=== PATIENT | female | born 1935 | race Caucasian/White ===

== ENCOUNTER 2017-01-10 19:41 | Inpatient (IN) | payer OTHER, MEDICARE ==
--- NOTE | 2017-01-10 19:56 | CPEKG ---
Heart Rate: 83 RR Interval: 723 P-R Interval: 131 QRSD Interval: 114 QT Interval: 376 QTC Interval: 442 P [place]: 0 QRS [place]: 9 T Wave [place]: 186 EKG Severity - ABNORMAL ECG - EKG Impression: SINUS RHYTHM EKG Impression: INCOMPLETE LEFT BUNDLE BRANCH BLOCK EKG Impression: PROBABLE LVH WITH SECONDARY REPOL ABNRM Electronically Signed By: Arun Arguelles 10-Jan-2017 22:47:51
[2017-01-10] MEDS ORDERED: NS 500 ML IV ONE (20:28)
[2017-01-10] MEDS ORDERED: CALCIUM CARBONATE 500 MG CHEWABLE TAB PO ONE ×2 (20:40→20:42)
[2017-01-10] MEDS ORDERED: FAMOTIDINE 20 MG/NACL/50 ML BAG IV ONE (20:40)
[2017-01-10 20:41] LABS: ALANINE AMINOTRANSFERASE 25 IU/L (9-52); ALBUMIN 3.5 g/dL (3.5-5.0); ALKALINE PHOSPHATASE 42 IU/L (38-126); ANION GAP 11 mEq/L (8-16); ASPARTATE AMINOTRANSFERASE 24 IU/L (14-46); BILIRUBIN,TOTAL 0.4 mg/dL (0.1-1.4); BILIRUBIN-CONJUGATED 0.3 mg/dL (0.0-0.5); BILIRUBIN-UNCONJUGATED 0.1 mg/dL (0.0-1.1); CALCIUM 10.7 mg/dL (8.5-10.4); CARBON DIOXIDE 24 mEq/l (22-31); CHLORIDE 102 mEq/L (97-110); CREATININE 1.6 mg/dL (0.6-1.0); GLOMERULAR FILTRATION RATE 31; GLUCOSE 108 mg/dL (70-100); SODIUM 137 mEq/L (134-144); TOTAL PROTEIN 6.7 g/dL (6.3-8.2)
[2017-01-10] MEDS ORDERED: FAMOTIDINE 20 MG/NACL 50 ML IV ONE (20:42)
[2017-01-10 20:43] LABS: % IMMATURE GRANULYOCYTES 0.6 % (0.0-1.1); ABSOLUTE IMMATURE GRANULOCYTES 0.08 10^3/uL (0.00-0.10); ADD DIFF? NO; ADD MORPH? NO; ADD SCAN? NO; ATYPICAL LYMPHOCYTE FLAG 0 (0-99); FRAGMENT RBC FLAG 0 (0-99); HEMATOCRIT 22.7 % (38.0-47.0); HEMOGLOBIN 7.1 g/dL (12.6-16.3); LEFT SHIFT FLG 0 (0-99); LIPEMIA HEMOLYSIS FLAG 80 (0-99); MEAN CELL HEMOGLOBIN CONCENTR. 31.3 g/dL (32.4-36.7); MEAN CELL VOLUME 95.8 fL (81.5-99.8); MEAN PLATELET VOLUME 11.4 fL (8.7-11.7); PLATELET CLUMPS FLAG 60 (0-99); PLATELET COUNT 238 10^3/uL (150-400); RED BLOOD CELL COUNT 2.37 10^6/uL (4.18-5.33); RED CELL DISTRIBUTION WIDTH 15.6 % (11.5-15.2)
[2017-01-10 20:44] LABS: INR 1.11 (0.83-1.16); PROTIME(PATIENT) 14.5 SEC (12.0-15.0)
[2017-01-10 20:53] LABS: CREATINE KINASE-MB FRACTION 1.09 ng/mL (0.00-3.19)
[2017-01-10] MEDS ORDERED: ONDANSETRON 4 MG/2 ML VIAL ONE (21:34)
[2017-01-10] MEDS ORDERED: ONDANSETRON 4 MG/2 ML VIAL IVP ONE ×2 (21:35→21:36)
--- NOTE | 2017-01-10 21:38 | EDPHY ---
H & P Time Seen by Provider: 01/10/17 20:12 HPI/ROS: HPI Increased fatigue. 81-year-old female by private vehicle with her . This patient has a complicated past medical history. Her and her were in [place] back in October. She has a history of a calcified aortic valve. This was diagnosed by echocardiogram by her primary care physician Dr. Mullins. She declined to have a valve replacement. While in [place] she developed shortness of breath which worsened acutely. She was taken to the hospital and had a aortic balloon pump placed followed by a bypass procedure and placement of a pig valve. During this procedure she had a small stroke. She had some residual right lower extremity weakness. Her who is providing most of the history states that this has gotten progressively better. She has graduated from using a walker to using a cane. She also has a history of anemia and has been treated with iron supplements by her primary care physician. Her reports however over the last few days she has again become progressively more fatigued and weak and much less active. She was seen at the [facility] which is affiliated with [facility]. We have sent for records request. ROS: Constitutional: No fever, no chills. As above. Eyes: No discharge. No changes in vision. ENT: No sore throat. No nasal congestion or rhinorrhea. Respiratory: No cough. No shortness of breath. Cardiac: No chest pain, no palpitations. Gastrointestinal: No abdominal pain, no vomiting, no diarrhea. Genitourinary: No hematuria. No dysuria or increased frequency with urination. Musculoskeletal: No back pain. No neck pain. No myalgias or arthralgias. Skin: No rashes. Neurological: No headache. No new focal weakness or altered sensation. Past medical history: As above. Asthma, hypertension, acid reflux. As above. On clopidogrel. Social history: Nonsmoker. No alcohol. Here with her . Physical Exam: General Appearance: Alert, she is not in distress. This patient is responding to questions appropriately and in full sentences. This patient appears well- hydrated. She is moderately obese. Eyes: Pupils equal and round no pallor or injection. No lid edema, erythema or injection. ENT, Mouth: Mucous membranes are moist. The pharyngeal tissues are unremarkable. No edema or swelling. No asymmetry suggestive of abscess. No erythema or exudates. Respiratory: There are no retractions, lungs are clear to auscultation anteriorly with good air movement bilaterally. Cardiovascular: Regular rate and rhythm. Murmur noted. Gastrointestinal: Obese habitus. Abdomen is soft and nontender, no masses, bowel sounds normal. No focal tenderness at McBurney's point. No Castillo sign. Rectal exam: Normal rectal tone. Dark stool. No gross blood. Neurological: Motor sensory function is grossly intact. Cranial nerves are normal. Skin: Warm and dry, no rashes. Musculoskeletal: Neck is supple and nontender. Extremities are symmetrical. All joints range without pain or impingement. Psychiatric: No agitation. No depression. Database: EKG: EKG time is 7:51 p.m.; EKG shows a sinus rhythm with an incomplete left bundle branch block. ST depressions noted in 2 3 and AVF as well as the lateral precordial leads. J-point elevation in V1 through V3. I do not have a EKG for comparison. The discordance appears appropriate. Interpreted by me. Imaging: Chest x-ray AP portable; the cardiac mediastinal silhouette is unremarkable. No evidence of infiltrate or pneumothorax. No acute cardiopulmonary disease process noted. Interpreted by me. Procedures: Emergency department course: IV was placed. Her vital signs were reviewed. Vital signs are normal. She was started on IV normal saline with 500 cc to be given over the next hour. She was given 4 mg of IV Zofran, Tums and IV Pepcid initially for nausea. 9:30 p.m., results of her diagnostic workup discussed with her and her . Plan for admission discussed. We are working on obtaining her medical records from [place]. 9:45 p.m., patient started on IV Protonix for likely upper gastrointestinal bleeding source. Hemoccult positive. She is on clopidogrel. 9:50 p.m., spoke with hospitalist, Dr. Urbina. Case discussed in detail with him. She accepts this patient for admission. Gastroenterology consultation deferred to hospitalist service. 10:44 p.m., urinalysis indicates urinary tract infection. Patient given 1 g of IV Rocephin in the emergency department prior to admission and transfer to the floor. She was admitted in stable condition. Differential Diagnosis: The differential diagnosis on this patient includes but is not limited to failure to thrive, upper versus lower gastrointestinal bleeding, congestive heart failure. Acute myocardial infarction This represents a partial list of diagnoses considered. These considerations are based on history, physical exam , past history, reassessment and diagnostic testing. Smoking Status: Never smoked Constitutional: Initial Vital Signs Temperature (C) 36.6 C 01/10/17 19:55 Heart Rate 98 01/10/17 19:55 Respiratory Rate 18 01/10/17 19:55 Blood Pressure 125/65 H 01/10/17 19:55 O2 Sat (%) 96 01/10/17 19:55 O2 Delivery Mode Room Air O2 (L/minute) 2 Allergies/Adverse Reactions: No Known Allergies Allergy (Unverified 01/10/17 19:55) Home Medications: Medication Instructions Recorded Acetaminophen [Tylenol 325mg (*)] 650 mg PO Q6 PRN 01/10/17 Albuterol Hfa Anes Only [Proair 2 puffs IH QID PRN 01/10/17 Hfa Icu (*)] Aspirin EC [Aspirin EC 81 mg (*)] 81 mg PO DAILY 01/10/17 Atorvastatin Calcium [Lipitor 40 40 mg PO HS 01/10/17 mg (*)] Clopidogrel Bisulfate [Plavix (*)] 75 mg PO DAILY 01/10/17 Docusate Sodium [Colace 100 MG (*)] 100 mg PO BID PRN 01/10/17 Herbals/Supplements -Info Only 1 ea PO DAILY 01/10/17 LORazepam [Ativan (*)] 1 mg PO HS PRN 01/10/17 Olmesartan Medoxomil [Benicar 20 20 mg PO DAILY 01/10/17 mg (*)] Polyethylene Glycol 3350 [Miralax 17 gm PO DAILY 01/10/17 17 gm (*)] Sennosides [Senna Lax] 17.2 mg PO HS PRN 01/10/17 Medical Decision Making - Data Points Laboratory Results: Laboratory Results 01/10/17 20:00 01/10/17 20:00 01/10/17 22:00 Patient ABO/Rh O POSITIVE Antibody Screen NEGATIVE Crossmatch IS Only See Detail Medications Given: Albuterol (Ventolin Hfa Inhaler) 1 - 2 puffs IH Q4HRS PRN PRN Reason: Short of Breath/Dyspnea Stop: 07/09/17 23:36 Last Admin: 01/13/17 02:29 Dose: 2 puffs Atorvastatin Calcium (Lipitor) 40 mg PO HS LILI Stop: 07/10/17 20:59 Last Admin: 01/12/17 20:10 Dose: 40 mg Clopidogrel Bisulfate (Plavix) 75 mg PO DAILY LILI Stop: 07/10/17 08:59 Last Admin: 01/12/17 13:19 Dose: 75 mg Lorazepam (Ativan) 1 mg PO HS PRN PRN Reason: Sleep/Insomnia Stop: 07/10/17 18:31 Last Admin: 01/12/17 20:15 Dose: 1 mg Pantoprazole Sodium (Protonix) 40 mg PO BID LILI Stop: 07/11/17 13:29 Last Admin: 01/12/17 20:10 Dose: 40 mg Discontinued Medications Calcium Carbonate (Tums) 500 mg PO EDNOW ONE Stop: 01/10/17 20:43 Last Admin: 01/10/17 20:44 Dose: 500 mg Sodium Chloride (Ns) 500 mls @ 1,000 mls/hr IV EDNOW ONE PRN Reason: Protocol Stop: 01/10/17 20:57 Last Admin: 01/10/17 20:38 Dose: 500 mls Famotidine/Sodium Chloride (Pepcid 20 Mg (Premix)) 50 mls @ 200 mls/hr IV EDNOW ONE Stop: 01/10/17 20:56 Last Admin: 01/10/17 20:44 Dose: 50 mls Pantoprazole Sodium 80 mg/ (Sodium Chloride) 100 mls @ 10 mls/hr IV Q10H ONE Stop: 01/11/17 07:43 Last Admin: 01/10/17 22:18 Dose: 100 mls Ceftriaxone Sodium/Dextrose (Rocephin 1 Gm (Premix)) 50 mls @ 100 mls/hr IV EDNOW ONE PRN Reason: Protocol Stop: 01/10/17 23:13 Last Admin: 01/10/17 23:07 Dose: 50 mls Ferric Sodium Gluconate Complex 125 mg/ Sodium Chloride 110 mls @ 110 mls/hr IV ONCE ONE Stop: 01/11/17 14:45 Last Admin: 01/11/17 14:16 Dose: 110 mls Lactated Ringer's (Lr) 1,000 mls @ 0 mls/hr IV ONCE ONE PRN Reason: As Directed Stop: 01/11/17 16:01 Last Admin: 01/11/17 18:04 Dose: Not Given Ondansetron HCl (Zofran) 4 mg IVP EDNOW ONE Stop: 01/10/17 21:36 Last Admin: 01/10/17 21:36 Dose: 4 mg Ondansetron HCl (Zofran) 4 mg IVP EDNOW ONE Stop: 01/10/17 21:37 Last Admin: 01/10/17 21:48 Dose: Not Given Pantoprazole Sodium (Protonix) 80 mg IVP EDNOW ONE Stop: 01/10/17 21:45 Last Admin: 01/10/17 22:04 Dose: 80 mg Pantoprazole Sodium (Protonix) 40 mg IVP BID LILI Stop: 07/10/17 08:59 Last Admin: 01/12/17 14:29 Dose: Not Given Departure - Departure Disposition: [facility] Acute Clinical Impression: Anemia, Failure to thrive, Dehydration, Renal insufficiency, Gastrointestinal bleeding, UTI (urinary tract infection) Condition: Fair
[2017-01-10] MEDS ORDERED: PANTOPRAZOLE SODIUM 40 MG VIAL IVP ONE (21:44)
[2017-01-10] MEDS ORDERED: PANTOPRAZOLE SODIUM 80 MG in NS 100 ML IV ONE (21:44)
[2017-01-10] MEDS ORDERED: ACETAMINOPHEN 325 MG TAB PO PRN (22:15)
[2017-01-10] MEDS ORDERED: ONDANSETRON DISINTEGRATING 4 MG TAB PO PRN (22:15)
[2017-01-10] MEDS ORDERED: ONDANSETRON 4 MG/2 ML VIAL IVP PRN (22:15)
[2017-01-10 22:16] LABS: COLOR YELLOW; LEUKOCYTE ESTERASE,URINE 2+ (NEGATIVE); NITRITE,URINE NEGATIVE (NEGATIVE)
[2017-01-10 22:27] LABS: BACTERIA TRACE /hpf (NONE SEEN); MUCUS TRACE /lpf (NONE-1+); YEAST PRESENT /hpf (NONE SEEN)
--- NOTE | 2017-01-10 23:05 | PDGENHP ---
History and Physical - Chief Complaint Fatigue - History of Present Illness 81 yo F w/ CAD s/p DAVID in October, s/p TAVR, and CKD presents with fatigue. Patient had a complicated hospital stay in [place] in October of this year while she was traveling. Per patient and daughter, the patient had acute shortness of breath at a grocery story and was taken to a nearby hospital. She was then transferred to [facility] where she had a cardiac stent placed and underwent a TAVR procedure, likely in the setting of heart failure symptoms. She recovered well from that and returned to [place] on a medical regimen of DAPT and statin. She has reportedly been doing ok since but over the last few days has developed severe fatigue and some mild confusion. Today her fatigue was accompanied by ROSAS and became so severe she had a hard time ambulating. At that point they came to the ED for evaluation. History Information - Allergies/Home Medication List Allergies/Adverse Reactions: No Known Allergies Allergy (Unverified 01/10/17 19:55) Home Medications: Acetaminophen [Tylenol 325mg (*)] 650 mg PO Q6 PRN 01/10/17 [Last Taken Unknown] Albuterol Hfa Anes Only [Proair Hfa Icu (*)] 2 puffs IH QID PRN 01/10/17 [Last Taken Unknown] Aspirin EC [Aspirin EC 81 mg (*)] 81 mg PO DAILY 01/10/17 [Last Taken 01/10/17] Atorvastatin Calcium [Lipitor 40 mg (*)] 40 mg PO HS 01/10/17 [Last Taken ] Clopidogrel Bisulfate [Plavix (*)] 75 mg PO DAILY 01/10/17 [Last Taken 01/10/17] Docusate Sodium [Colace 100 MG (*)] 100 mg PO BID PRN 01/10/17 [Last Taken Unknown] Herbals/Supplements -Info Only 1 ea PO DAILY 01/10/17 [Last Taken 01/10/17] LORazepam [Ativan (*)] 1 mg PO HS PRN 01/10/17 [Last Taken Unknown] Olmesartan Medoxomil [Benicar 20 mg (*)] 20 mg PO DAILY 01/10/17 [Last Taken ] Polyethylene Glycol 3350 [Miralax 17 gm (*)] 17 gm PO DAILY 01/10/17 [Last Taken Unknown] Sennosides [Senna Lax] 17.2 mg PO HS PRN 01/10/17 [Last Taken Unknown] I have personally reviewed and updated: family history, medical history - Past Medical History asthma, coronary artery disease, CVA Additional medical history: CKD - Surgical History Additional surgical history: TAVR - Family History Positive for: CAD, stroke - Social History Smoking Status: Never smoked Review of Systems Review of Systems: ROS: 10pt was reviewed & negative except for what was stated in HPI & below Physical Exam Physical Exam: Temp Pulse Resp BP Pulse Ox 37.1 C 89 20 133/58 H 98 01/10/17 22:30 01/10/17 22:30 01/10/17 22:30 01/10/17 22:30 01/10/17 22:30 Constitutional: no apparent distress, not in pain Eyes: PERRL, pale conjunctiva Ears, Nose, Mouth, Throat: moist mucous membranes, no oral mucosal ulcers Cardiovascular: regular rate and rhythym, systolic murmur (RUSB), diastolic murmur, No edema Respiratory: no respiratory distress, clear to auscultation Gastrointestinal: normoactive bowel sounds, soft, non-tender abdomen Skin: warm, normal color Neurologic: sensation intact bilaterally, other (A&Ox2 for name and place; close on date (late December)) Psychiatric: interacting appropriately, not anxious Lab Data & Imaging Review 01/10/17 20:00 01/10/17 20:00 WBC 12.72 10^3/uL (3.80-9.50) H 01/10/17 20:00 RBC 2.37 10^6/uL (4.18-5.33) L 01/10/17 20:00 Hgb 7.1 g/dL (12.6-16.3) L 01/10/17 20:00 Hct 22.7 % (38.0-47.0) L 01/10/17 20:00 MCV 95.8 fL (81.5-99.8) 01/10/17 20:00 MCH 30.0 pg (27.9-34.1) 01/10/17 20:00 MCHC 31.3 g/dL (32.4-36.7) L 01/10/17 20:00 RDW 15.6 % (11.5-15.2) H 01/10/17 20:00 Plt Count 238 10^3/uL (150-400) 01/10/17 20:00 MPV 11.4 fL (8.7-11.7) 01/10/17 20:00 Neut % (Auto) 84.2 % (39.3-74.2) H 01/10/17 20:00 Lymph % (Auto) 9.4 % (15.0-45.0) L 01/10/17 20:00 [place] % (Auto) 5.3 % (4.5-13.0) 01/10/17 20:00 Eos % (Auto) 0.2 % (0.6-7.6) L 01/10/17 20:00 Baso % (Auto) 0.3 % (0.3-1.7) 01/10/17 20:00 Nucleat RBC Rel Count 0.0 % (0.0-0.2) 01/10/17 20:00 Absolute Neuts (auto) 10.71 10^3/uL (1.70-6.50) H 01/10/17 20:00 Absolute Lymphs (auto) 1.19 10^3/uL (1.00-3.00) 01/10/17 20:00 Absolute Monos (auto) 0.68 10^3/uL (0.30-0.80) 01/10/17 20:00 Absolute Eos (auto) 0.02 10^3/uL (0.03-0.40) L 01/10/17 20:00 Absolute Basos (auto) 0.04 10^3/uL (0.02-0.10) 01/10/17 20:00 Absolute Nucleated RBC 0.00 10^3/uL (0-0.01) 01/10/17 20:00 Immature Gran % 0.6 % (0.0-1.1) 01/10/17 20:00 Immature Gran # 0.08 10^3/uL (0.00-0.10) 01/10/17 20:00 PT 14.5 SEC (12.0-15.0) 01/10/17 20:00 INR 1.11 (0.83-1.16) 01/10/17 20:00 APTT 20.0 SEC (23.0-38.0) L 01/10/17 20:00 D-Dimer 0.85 ug/mLFEU (0.00-0.50) H 01/10/17 20:00 Sodium 137 mEq/L (134-144) 01/10/17 20:00 Potassium 5.0 mEq/L (3.5-5.2) 01/10/17 20:00 Chloride 102 mEq/L (97-110) 01/10/17 20:00 Carbon Dioxide 24 mEq/l (22-31) 01/10/17 20:00 Anion Gap 11 mEq/L (8-16) 01/10/17 20:00 BUN 72 mg/dL (7-23) H 01/10/17 20:00 Creatinine 1.6 mg/dL (0.6-1.0) H 01/10/17 20:00 Estimated GFR 31 01/10/17 20:00 Glucose 108 mg/dL (70-100) H 01/10/17 20:00 Calcium 10.7 mg/dL (8.5-10.4) H 01/10/17 20:00 Phosphorus 3.5 mg/dL (2.5-4.5) 01/10/17 20:00 Total Bilirubin 0.4 mg/dL (0.1-1.4) 01/10/17 20:00 Conjugated Bilirubin 0.3 mg/dL (0.0-0.5) 01/10/17 20:00 Unconjugated Bilirubin 0.1 mg/dL (0.0-1.1) 01/10/17 20:00 AST 24 IU/L (14-46) 01/10/17 20:00 ALT 25 IU/L (9-52) 01/10/17 20:00 Alkaline Phosphatase 42 IU/L (38-126) 01/10/17 20:00 Creatine Kinase < 20 IU/L (0-156) 01/10/17 20:00 CK-MB (CK-2) Fraction 1.09 ng/mL (0.00-3.19) 01/10/17 20:00 Troponin I 0.020 ng/mL (0.000-0.034) 01/10/17 20:00 NT-Pro-B Natriuret Pep 1370 pg/mL (0-450) H 01/10/17 20:00 Total Protein 6.7 g/dL (6.3-8.2) 01/10/17 20:00 Albumin 3.5 g/dL (3.5-5.0) 01/10/17 20:00 Lipase 444 IU/L (23-300) H 01/10/17 20:00 Urine Color YELLOW 01/10/17 22:06 Urine Appearance MODERATELY TURBID 01/10/17 22:06 Urine pH 5.0 (5.0-7.5) 01/10/17 22:06 Ur Specific [place] 1.023 (1.002-1.030) 01/10/17 22:06 Urine Protein NEGATIVE (NEGATIVE) 01/10/17 22:06 Urine Ketones NEGATIVE (NEGATIVE) 01/10/17 22:06 Urine Blood 3+ (NEGATIVE) H 01/10/17 22:06 Urine Nitrate NEGATIVE (NEGATIVE) 01/10/17 22:06 Urine Bilirubin NEGATIVE (NEGATIVE) 01/10/17 22:06 Urine Urobilinogen NEGATIVE EU (0.2-1.0) 01/10/17 22:06 Ur Leukocyte Esterase 2+ (NEGATIVE) H 01/10/17 22:06 Urine RBC 5-10 /hpf (0-3) H 01/10/17 22:06 Urine WBC 5-10 /hpf (0-3) H 01/10/17 22:06 Ur Epithelial Cells 3+ /lpf (NONE-1+) H 01/10/17 22:06 Urine Bacteria TRACE /hpf (NONE SEEN) H 01/10/17 22:06 Urine Mucus TRACE /lpf (NONE-1+) 01/10/17 22:06 Urine Yeast PRESENT /hpf (NONE SEEN) 01/10/17 22:06 Urine Glucose NEGATIVE (NEGATIVE) 01/10/17 22:06 Stool Occult Bld Scrn POSITIVE (NEGATIVE) H 01/10/17 21:43 Patient ABO/Rh O POSITIVE 01/10/17 22:00 Antibody Screen NEGATIVE 01/10/17 22:00 Visualized and Interpreted Chest x-ray results: Yes Chest X-Ray results: no infiltrate Visualized and Interpreted EKG results: Yes EKG Interpretation: Positive for: normal sinsus rhythm, ST depression (Lateral leads) Assessment & Plan Assessment: 81 yo F w/ CAD s/p DAVID in October, s/ TAVR, CKD, and hx CVA presents with fatigue and found to have acute on chronic anemia. Plan: 1. Acute on chronic normocytic anemia - I suspect this is driving fatigue and ROSAS, which were patient's presenting complaints. Patient has noted dark stools but she is also on oral iron replacement. Hgb 10 just 2 weeks ago and 7 on presentation today. This is likely 2/2 newly started DAPT after stent placement in October; FOBT+ in the ED. - Will use transfusion threshold of Hgb<8 noting CAD and signs of ischemia on admission ECG - Transfuse 1u pRBC now and continue to monitor CBC - Hold ASA, continue Plavix noting recently placed DAVID - PPI IV BID for now - Will make NPO @ [place] and consult GI for possible endoscopy 2. CAD - Had stent placement in October at [facility]. On DAPT and statin as outpatient, unclear why not on BB or KATINA. ECG notable for lateral ST depressions on admission but troponin negative and chest pain free. I suspect this may be related to fairly acute anemia. - Transfusion threshold of Hgb<8 as above - Hold ASA, continue Plavix, statin - Cardiology consult 3. CKD, possible GRISELDA - Previous creatinine baseline appears to be ~1.2, although 2.2 on outpatient labs a few weeks ago. SCr 1.6 on admission, likely some element or pre-renal azotemia in setting of anemia. - Monitor BMP s/p IVF and pRBCs 4. s/p TAVR - Performed at [facility] in October per patient and family. - Records requested by ED 5. Hx Asthma - Albuterol PRN 6. Hx CVA - TAVR complication, continue statin and plavix Diet - NPO @ [place] Code - Full Ppx - SCDs Dispo - Admit to inpatient status noting acute anemia, need for further diagnostics, consultation, and likely endoscopy.
[2017-01-11] MEDS: ALBUTEROL 200 PUFFS/18 GM MDI IH PRN ×2 (00:31→11:43)
[2017-01-11 04:34] LABS: % IMMATURE GRANULYOCYTES 0.4 % (0.0-1.1); ABSOLUTE IMMATURE GRANULOCYTES 0.04 10^3/uL (0.00-0.10); ADD DIFF? NO; ADD MORPH? NO; ADD SCAN? NO; ATYPICAL LYMPHOCYTE FLAG 0 (0-99); FRAGMENT RBC FLAG 0 (0-99); HEMATOCRIT 22.3 % (38.0-47.0); HEMOGLOBIN 7.2 g/dL (12.6-16.3); LEFT SHIFT FLG 0 (0-99); LIPEMIA HEMOLYSIS FLAG 80 (0-99); MEAN CELL HEMOGLOBIN 30.6 pg (27.9-34.1); MEAN CELL HEMOGLOBIN CONCENTR. 32.3 g/dL (32.4-36.7); MEAN CELL VOLUME 94.9 fL (81.5-99.8); PLATELET CLUMPS FLAG 0 (0-99); PLATELET COUNT 185 10^3/uL (150-400); RED BLOOD CELL COUNT 2.35 10^6/uL (4.18-5.33); RED CELL DISTRIBUTION WIDTH 15.4 % (11.5-15.2)
[2017-01-11 04:45] LABS: ANION GAP 9 mEq/L (8-16); CALCIUM 9.6 mg/dL (8.5-10.4); CARBON DIOXIDE 24 mEq/l (22-31); CHLORIDE 105 mEq/L (97-110); CREATININE 1.6 mg/dL (0.6-1.0); GLOMERULAR FILTRATION RATE 31; GLUCOSE 84 mg/dL (70-100); MAGNESIUM 1.7 mg/dL (1.6-2.3); POTASSIUM 4.9 mEq/L (3.5-5.2); SODIUM 138 mEq/L (134-144)
[2017-01-11 04:53] LABS: TROPONIN I 0.037 ng/mL (0.000-0.034)
[2017-01-11] MEDS: CLOPIDOGREL BISULFATE 75 MG TAB PO SCH (10:55)
[2017-01-11] MEDS: PANTOPRAZOLE SODIUM 40 MG VIAL IVP SCH ×2 (10:55→20:46)
--- NOTE | 2017-01-11 11:00 | PDMN ---
Medical Necessity Medical necessity: Pt meets IP criteria per MD; est los >2 mn for eval/tx of severe fatigue w/difficulty ambulating, dyspnea on exertion & mild confusion r/ t acute on chronic normocytic anemia; admit for further diagnostics, blood transfusion, IV PPIs, GI consult & possible endoscopy; hx CAD s/p DAVID, s/p TAVR, CKD & CVA; per H&P & order 01/10/17
--- NOTE | 2017-01-11 12:34 | ECHO ---
[email or web address] [address] [address] Main: [phone] Fax: Transthoracic Echocardiogram Name: MARYBETH WOLFF MR#: [id number] Study Date: 01/11/2017 Study Time: 11:41 AM Date of : 1935 Age: 81 year(s) Height: 167.6 cm (66 in.) Weight: 69.4 kg (153 lb.) BSA: 1.78 m2 Gender: Female Examination: Echo Indication: Post TAVR Image Quality: Contrast: Requested by: Carlos Alicia BP: 123 mmHg/51 mmHg Heart Rate: Rhythm: Indication: Post TAVR Procedure Staff Fur Scraper: Crissy Epperson Physician: Carlos Alicia Requesting Provider: Measurements: Chambers Valvular Assessment AV/MV Valvular Assessment TV/PV Normal Normal Normal Name Value Range Name Value Range Name Value Range Ao Janell (MM): 2.9 cm (2.2 cm-3.7 AV meanP mmHg ( - ) TR Vmax: 2.59 mm/s ( - ) cm) MV E Vmax: 1.34 m/s ( - ) TR PGmax: 27 mmHg ( - ) IVSd (2D): 1.0 cm (0.6 cm-1.1 MV A Vmax: 1.71 m/s ( - ) syst. PAP: 32 mmHg ( - ) cm) MV E/A: 0.78 ( - ) LVDd (2D): 4.6 cm (3.9 cm-5.3 cm) LVDs (2D): 2.2 cm (2.1 cm-4 cm) LVPWd (2D): 0.9 cm ( - ) LVEF (MOD4): 73 % (>=55 %) Continued Measurements: Chambers Valvular Assessment AV/MV Valvular Assessment TV/PV Name Value Name Value Name Value LADs: 3.8 cm MV DecTime: 345 m/s CVP (est.): 5 mmHg LADs Lon.0 cm MV E' Septal: 0.06 m/s LA Area: 21.2 cm2 MV E/E' Septal: 23.30 MV E/E' Lateral: 25.50 Findings: Left Ventricle: Normal size left ventricle. Mild concentric LV hypertrophy. Normal global systolic LV function. EF is 73 %. No regional wall motion abnormality. Diastolic dysfunction is present. . Right Ventricle: Patient: MARYBETH WOLFF Study Date: 01/11/2017 Page 1 of 2 11:41 AM Normal size right ventricle. Left Atrium: The left atrium is mildly dilated. Right Atrium: The right atrium is mildly dilated. Mitral Valve: Moderate-severe mitral annular calcification. Mild mitral valve regurgitation is present. Aortic Valve: TAVR AV max PG is 26mmHG. AV mean PG is 16mmHG. Mild perivalvular leak.. Tricuspid Valve: The tricuspid valve appears normal. Mild tricuspid regurgitation is present. Pulmonic Valve: Pulmonary valve not well visualized. Pericardium: No pericardial effusion. (No Signature Object) Patient: MARYBETH WOLFF Study Date: 01/11/2017 Page 2 of 2 11:41 AM [id number]
[2017-01-11] MEDS ORDERED: SODIUM FERRIC GLUCONAT/SUCROSE 125 MG in NS 100 ML IV ONE (13:46)
--- NOTE | 2017-01-11 13:46 | HOSPPROG ---
Hospitalist Progress Note Assessment/Plan: 81 yo F w recent stent nad TAVR admitted w symptomatic anaemia comncerning for slow UGIB anemia: blood loss no hematemesis uncertain if melena 1. bid PPI 2. scope this afternoon 3. h/o normal colonoscopies, last ten years ago 4. repeat hct in AM 5. DAP to be continued barring very high risk lesion cad: DAVID recently TAVR: echo OK ABLA: give IV iron dispo: inpt Subjective: case d/w dr valentine. no further bleeding Objective: Vital Signs Temp Pulse Resp BP Pulse Ox 36.6 C 76 18 123/51 H 97 01/11/17 11:10 01/11/17 11:10 01/11/17 11:10 01/11/17 11:10 01/11/17 11:10 Laboratory Results 01/11/17 03:42 01/11/17 03:42 01/10/17 01/11/17 01/12/17 05:59 05:59 05:59 Intake Total 1410 375 Output Total 200 450 Balance 1210 -75 PT 14.5 SEC (12.0-15.0) 01/10/17 20:00 INR 1.11 (0.83-1.16) 01/10/17 20:00 - Physical Exam Constitutional: no apparent distress, appears nourished Eyes: PERRL, anicteric sclera Ears, Nose, Mouth, Throat: moist mucous membranes, hearing normal Cardiovascular: regular rate and rhythym, no murmur, rub, or gallop Respiratory: no respiratory distress, no rales or rhonchi Gastrointestinal: normoactive bowel sounds, soft, non-tender abdomen Genitourinary: no bladder fullness, No garay in urethra Skin: warm, normal color Musculoskeletal: full muscle strength, no muscle tenderness Neurologic: AAOx3, sensation intact bilaterally Psychiatric: interacting appropriately ICD10 Worksheet Patient Problems: Problems Problem Status Onset Anemia Acute Dehydration Acute Failure to thrive Acute Gastrointestinal bleeding Acute Renal insufficiency Acute
--- NOTE | 2017-01-11 15:35 | ASMTCMCOM ---
CM Note CM Note Notes: Chart reviewed. Met with patient to review poc. per patient she and her live independently in [facility]. She has a complex cardiac history including TAVR and stent, presents with symptomatic anemia, Has HHC PT but is unable to recall the name of the home care. Call to Jacek her who can't remember the name but will bring in the business card. Final needs to be determined. Plan home with HHC. CM to follow. Date Signed: 01/11/2017 03:34 PM Electronically Signed By:Belle Liz RN
[2017-01-11] MEDS ORDERED: LR 1,000 ML IV ONE (16:00)
--- NOTE | 2017-01-11 16:23 | PDANEPAE ---
ANE History of Present Illness anemia ANE Past Medical History - Cardiovascular History Hx Hypertension: Yes Hx CHF / Valvular Disease: Yes - Pulmonary History Hx Asthma/Reactive Airway Disease: Yes Hx Oxygen in Use at Home: No Hx Sleep Apnea: No Sleep Apnea Screening Result - Last Documented: Negative - Endocrine History Hx Diabetes: No - GI History Hx Gastrointestinal Disorders: Yes - Chronic Pain History Chronic Pain: No ANE Review of Systems Review of Systems: ANE Patient History - Allergies Allergies/Adverse Reactions: No Known Allergies Allergy (Unverified 01/10/17 19:55) - Home Medications Home Medications: Acetaminophen [Tylenol 325mg (*)] 650 mg PO Q6 PRN 01/10/17 [Last Taken Unknown] Albuterol Hfa Anes Only [Proair Hfa Icu (*)] 2 puffs IH QID PRN 01/10/17 [Last Taken Unknown] Aspirin EC [Aspirin EC 81 mg (*)] 81 mg PO DAILY 01/10/17 [Last Taken 01/10/17] Atorvastatin Calcium [Lipitor 40 mg (*)] 40 mg PO HS 01/10/17 [Last Taken ] Clopidogrel Bisulfate [Plavix (*)] 75 mg PO DAILY 01/10/17 [Last Taken 01/10/17] Docusate Sodium [Colace 100 MG (*)] 100 mg PO BID PRN 01/10/17 [Last Taken Unknown] LORazepam [Ativan (*)] 1 mg PO HS PRN 01/10/17 [Last Taken Unknown] Olmesartan Medoxomil [Benicar 20 mg (*)] 20 mg PO DAILY 01/10/17 [Last Taken ] Polyethylene Glycol 3350 [Miralax 17 gm (*)] 17 gm PO DAILY 01/10/17 [Last Taken Unknown] RX: Herbals/Supplements -Info Only 1 ea PO DAILY 01/10/17 [Last Taken 01/10/17] Sennosides [Senna Lax] 17.2 mg PO HS PRN 01/10/17 [Last Taken Unknown] - NPO status NPO Since - Liquids (Date): 01/11/17 NPO Since - Liquids (Time): 09:00 NPO Since - Solids (Date): 01/10/17 NPO Since - Solids (Time): 23:00 - Smoking Hx Smoking Status: Former smoker ANE Labs/Vital Signs - Labs Result Diagrams: 01/11/17 03:42 01/11/17 03:42 - Vital Signs Blood Pressure: 132/51 Heart Rate: 62 Respiratory Rate: 16 O2 Sat (%): 97 Height: 167.64 cm Weight: 69.8 kg ANE Physical Exam - Airway Neck exam: FROM Mallampati Score: Class 2 Mouth exam: normal dental/mouth exam - Pulmonary Pulmonary: no respiratory distress - Cardiovascular Cardiovascular: regular rate and rhythym - ASA Status ASA Status: III ANE Anesthesia Plan Total IV Anesthesia: Yes
[2017-01-11] MEDS ORDERED: PROPOFOL 200 MG/20 ML VIAL ONE (16:27)
[2017-01-11] MEDS ORDERED: SIMETHICONE DROPS 30 ML BOTTLE ONE (16:46)
[2017-01-11] MEDS ORDERED: NALOXONE HCL 0.4 MG/ML INJ IVP PRN (16:53)
--- NOTE | 2017-01-11 16:56 | POSTOPPROG ---
Post Op Note Date of Operation: 01/11/17 Surgeon: Samuel Daniel Anesthesia: GET(General Endotracheal) Pre-op Diagnosis: GI bleed Post-op Diagnosis: duodenal ulcer Procedure: EGD/APC/biopsy for H. pylori. Inf/Abcess present in the surg proc area at time of surgery?: No EBL: Minimal
--- NOTE | 2017-01-11 17:03 | POSTANESTH ---
Post Anesthetic Evaluation Cardiovascular Status: Normal, Stable Respiratory Status: Normal, Stable Level of Consciousness/Mental Status: Can Participate in Eval Pain Control: Adequate, Prn Tx Ordered Nausea/Vomiting Control: Adequate, Prn Tx Ordered Complications Possibly Related to Anesthesia: None Noted
--- NOTE | 2017-01-11 17:04 | GIREPORT ---
[facility] Surgical Services - Endoscopy Department Patient Name: Conchita Ng Procedure Date: 01/11/2017 3:45 PM Patient Type: Inpatient Attending MD/ ER Physician: Samuel Daniel MD Procedure: Upper GI endoscopy Indications: Melena, Suspected upper gastrointestinal bleeding Providers: Samuel Daniel MD Medicines: General Anesthesia Complications: No immediate complications. Description of Procedure: After obtaining informed consent, the endoscope was passed under direct vision. Throughout the procedure, the patient's blood pressure, pulse, and oxygen saturations were monitored continuously. The Endoscope was intro duced through the mouth, and advanced to the fourth part of duodenum. The [facility] GI endoscopy was accomplished with ease. The patient tolerated the procedu re well. Findings: Red blood was found in the duodenal bulb. A single erosion with bleeding was found in the duodenal bulb. Biopsies were taken with a cold forceps for Helicobacter pylori testing. Verification of patient identification for the specimen was done. Coagulation for hemos tasis using argon plasma was successful. Estimated blood loss: none. A medium-sized hiatal hernia was present. Estimated Blood Loss: Estimated blood loss: none. Post Op Diagnosis: - Blood in the duodenal bulb. - Duodenal erosion with bleeding. Biopsied. Treated with argon plasma coagulation (APC). Recommendation: - [facility]. - Resume regular diet. - Continue present medications. - Await pathology results. - Repeat upper endoscopy PRN for retreatment. Attending Participation: I personally performed the entire procedure. Samuel Daniel MD Samuel Daniel MD 01/11/2017 5:04:41 PM This report has been signed electronicallyRobleatha Daniel MD Number of Addenda: 0 Note Initiated On: 01/11/2017 3:45 PM [email or web address]
[2017-01-11] MEDS: LORazepam 1 MG TAB PO PRN (20:46)
[2017-01-11] MEDS: ATORVASTATIN CALCIUM 40 MG TAB PO SCH (20:46)
[2017-01-12 09:03] LABS: % IMMATURE GRANULYOCYTES 0.5 % (0.0-1.1); ABSOLUTE IMMATURE GRANULOCYTES 0.04 10^3/uL (0.00-0.10); ADD DIFF? NO; ADD MORPH? NO; ADD SCAN? NO; ATYPICAL LYMPHOCYTE FLAG 0 (0-99); FRAGMENT RBC FLAG 0 (0-99); HEMATOCRIT 22.4 % (38.0-47.0); HEMOGLOBIN 7.5 g/dL (12.6-16.3); LEFT SHIFT FLG 0 (0-99); LIPEMIA HEMOLYSIS FLAG 80 (0-99); MEAN CELL HEMOGLOBIN 31.9 pg (27.9-34.1); MEAN CELL HEMOGLOBIN CONCENTR. 33.5 g/dL (32.4-36.7); MEAN CELL VOLUME 95.3 fL (81.5-99.8); MEAN PLATELET VOLUME 10.7 fL (8.7-11.7); PLATELET CLUMPS FLAG 0 (0-99); PLATELET COUNT 161 10^3/uL (150-400); RED BLOOD CELL COUNT 2.35 10^6/uL (4.18-5.33); RED CELL DISTRIBUTION WIDTH 15.5 % (11.5-15.2)
[2017-01-12 09:28] LABS: ANION GAP 8 mEq/L (8-16); CALCIUM 8.9 mg/dL (8.5-10.4); CARBON DIOXIDE 23 mEq/l (22-31); CHLORIDE 107 mEq/L (97-110); CREATININE 1.5 mg/dL (0.6-1.0); GLOMERULAR FILTRATION RATE 33; GLUCOSE 77 mg/dL (70-100); POTASSIUM 4.3 mEq/L (3.5-5.2); SODIUM 138 mEq/L (134-144)
--- NOTE | 2017-01-12 12:50 | HOSPPROG ---
Hospitalist Progress Note Assessment/Plan: 81 yo F w recent stent nad TAVR admitted w symptomatic anaemia comncerning for slow UGIB anemia: 2/2 duodenal bleed per scope report, argon laser resolved bleed give add'l 2 units bid ppi continue plavix cad: DAVID recently restart aspirin in a week TAVR: echo OK ABLA: give IV iron add'l 2 units dispo: inpt pt/ot Subjective: case d/w dr valentine. scope w duodenal erosion, red blood. remains anemic Objective: Vital Signs Temp Pulse Resp BP Pulse Ox 36.7 C 63 12 103/40 L 90 L 01/12/17 12:00 01/12/17 12:00 01/12/17 12:00 01/12/17 12:00 01/12/17 12:00 Laboratory Results 01/12/17 08:51 01/12/17 08:51 01/11/17 01/12/17 01/13/17 05:59 05:59 05:59 Intake Total 1410 1015 Output Total 200 650 375 Balance 1210 365 -375 PT 14.5 SEC (12.0-15.0) 01/10/17 20:00 INR 1.11 (0.83-1.16) 01/10/17 20:00 - Physical Exam Constitutional: no apparent distress, appears nourished Eyes: PERRL, anicteric sclera Ears, Nose, Mouth, Throat: moist mucous membranes, hearing normal Cardiovascular: regular rate and rhythym, no murmur, rub, or gallop, systolic murmur Respiratory: no respiratory distress, no rales or rhonchi Gastrointestinal: normoactive bowel sounds, soft, non-tender abdomen Genitourinary: no bladder fullness, No garay in urethra Skin: warm, normal color Musculoskeletal: full muscle strength Neurologic: AAOx3 ICD10 Worksheet Patient Problems: Problems Problem Status Onset Anemia Acute Dehydration Acute Failure to thrive Acute Gastrointestinal bleeding Acute Renal insufficiency Acute
[2017-01-12] MEDS: CLOPIDOGREL BISULFATE 75 MG TAB PO SCH (13:19)
[2017-01-12] MEDS: PANTOPRAZOLE SODIUM 40 MG TAB PO SCH ×2 (13:19→20:10)
[2017-01-12] MEDS: PANTOPRAZOLE SODIUM 40 MG VIAL IVP SCH (14:29)
--- NOTE | 2017-01-12 14:54 | ASMTCMCOM ---
CM Note CM Note Notes: CM received a call from [facility] and informed CM that pt is current w/ them. CM sent updates to [facility]. PT is recommending HC. CM to follow. Plan: HC w/ [facility] for PT and RN Date Signed: 01/12/2017 02:53 PM Electronically Signed By:ABDULLAHI Brown
[2017-01-12] MEDS: ATORVASTATIN CALCIUM 40 MG TAB PO SCH (20:10)
[2017-01-12] MEDS: ALBUTEROL 200 PUFFS/18 GM MDI IH PRN (20:12)
[2017-01-12] MEDS: LORazepam 1 MG TAB PO PRN (20:15)
[2017-01-13] MEDS: ALBUTEROL 200 PUFFS/18 GM MDI IH PRN (02:29)
[2017-01-13 04:52] LABS: % IMMATURE GRANULYOCYTES 0.3 % (0.0-1.1); ABSOLUTE IMMATURE GRANULOCYTES 0.03 10^3/uL (0.00-0.10); ADD DIFF? NO; ADD MORPH? NO; ADD SCAN? NO; ATYPICAL LYMPHOCYTE FLAG 0 (0-99); FRAGMENT RBC FLAG 0 (0-99); HEMATOCRIT 30.1 % (38.0-47.0); HEMOGLOBIN 10.2 g/dL (12.6-16.3); LEFT SHIFT FLG 10 (0-99); LIPEMIA HEMOLYSIS FLAG 90 (0-99); MEAN CELL HEMOGLOBIN 31.7 pg (27.9-34.1); MEAN CELL HEMOGLOBIN CONCENTR. 33.9 g/dL (32.4-36.7); MEAN CELL VOLUME 93.5 fL (81.5-99.8); MEAN PLATELET VOLUME 11.1 fL (8.7-11.7); PLATELET CLUMPS FLAG 0 (0-99); PLATELET COUNT 151 10^3/uL (150-400); RED BLOOD CELL COUNT 3.22 10^6/uL (4.18-5.33); RED CELL DISTRIBUTION WIDTH 15.1 % (11.5-15.2)
[2017-01-13 05:15] LABS: ANION GAP 9 mEq/L (8-16); CALCIUM 8.3 mg/dL (8.5-10.4); CARBON DIOXIDE 23 mEq/l (22-31); CHLORIDE 105 mEq/L (97-110); CREATININE 1.5 mg/dL (0.6-1.0); GLOMERULAR FILTRATION RATE 33; GLUCOSE 72 mg/dL (70-100); SODIUM 137 mEq/L (134-144)
[2017-01-13 10:13] VITALS: RESP 17; TEMP 98.1
--- NOTE | 2017-01-13 10:25 | HOSPPROG ---
Hospitalist Progress Note Assessment/Plan: 81-year-old admitted with weakness and mild confusion secondary to acute anemia from blood loss. She recently underwent TAVR and drug-eluting stent October and is on dual anti-platelet therapy currently. She was found to have a duodenal erosion with acute bleeding status post argon laser by Dr. Daniel # anemia secondary to acute blood loss from a duodenal erosion and anti- platelet therapy. * Repeat hemoglobin is improved, will check 1 more time and possible DC with home care * Received IV iron and 2 U of packed red blood cells # duodenal erosions with acute bleeding status post argon laser. * Continue twice daily PPI * Follow-up EEG if needed for acute bleeding * Continue Plavix * Follow hemoglobin # coronary artery disease status post drug-eluting stent in October. * Continue Plavix * Resume aspirin in a week # TAVR, status post echo this admission, no acute issues Patient will likely go home with home care when stable Subjective: Quite tired today. Was not quite sure where she was but does know the date. Currently lives at home in the [facility] with home care Objective: Vital Signs Temp Pulse Resp BP Pulse Ox 36.7 C 70 17 115/54 L 98 01/13/17 10:12 01/13/17 10:12 01/13/17 10:12 01/13/17 10:12 01/13/17 10:12 Laboratory Results 01/13/17 03:59 01/13/17 03:59 01/12/17 01/13/17 01/14/17 05:59 05:59 05:59 Intake Total 1015 1750 Output Total 650 775 Balance 365 975 PT 14.5 SEC (12.0-15.0) 01/10/17 20:00 INR 1.11 (0.83-1.16) 01/10/17 20:00 - Physical Exam Constitutional: chronically ill appearing Eyes: PERRL Ears, Nose, Mouth, Throat: moist mucous membranes Cardiovascular: regular rate and rhythym, systolic murmur Respiratory: no respiratory distress, reduced air movement (Basis) Gastrointestinal: normoactive bowel sounds, soft, non-tender abdomen Genitourinary: no bladder fullness Skin: warm, No normal color (Pale) Musculoskeletal: generalized weakness Neurologic: No AAOx3 (Unsure of her location), No facial droop Psychiatric: interacting appropriately, not anxious, not encephalopathic ICD10 Worksheet Patient Problems: Problems Problem Status Onset Anemia Acute Failure to thrive Acute Dehydration Acute Renal insufficiency Acute Gastrointestinal bleeding Acute UTI (urinary tract infection) Acute
[2017-01-13 12:17] VITALS: BP 120/50; PULSE 80; O2SAT 91
[2017-01-13 13:17] LABS: HEMATOCRIT 33.3 % (38.0-47.0); HEMOGLOBIN 11.4 g/dL (12.6-16.3)
[2017-01-13] MEDS: PANTOPRAZOLE SODIUM 40 MG TAB PO SCH (14:37)
[2017-01-13] MEDS: CLOPIDOGREL BISULFATE 75 MG TAB PO SCH (14:37)
--- NOTE | 2017-01-13 16:10 | PDIAF ---
- Diagnosis Code Status: Full Code - Medication Management Discharge Medications: Medications to Continue on Transfer Acetaminophen [Tylenol 325mg (*)] 650 mg PO Q6 PRN 01/10/17 [Last Taken Unknown] Albuterol Hfa Anes Only [Proair Hfa Icu (*)] 2 puffs IH QID PRN 01/10/17 [Last Taken Unknown] Atorvastatin Calcium [Lipitor 40 mg (*)] 40 mg PO HS 01/10/17 [Last Taken ] Clopidogrel Bisulfate [Plavix (*)] 75 mg PO DAILY 01/10/17 [Last Taken 01/10/17] Docusate Sodium [Colace 100 MG (*)] 100 mg PO BID PRN 01/10/17 [Last Taken Unknown] Herbals/Supplements -Info Only 1 ea PO DAILY 01/10/17 [Last Taken 01/10/17] LORazepam [Ativan (*)] 1 mg PO HS PRN 01/10/17 [Last Taken Unknown] Olmesartan Medoxomil [Benicar 20 mg (*)] 20 mg PO DAILY 01/10/17 [Last Taken ] Polyethylene Glycol 3350 [Miralax 17 gm (*)] 17 gm PO DAILY 01/10/17 [Last Taken Unknown] Sennosides [Senna Lax] 17.2 mg PO HS PRN 01/10/17 [Last Taken Unknown] Aspirin EC [Aspirin EC 81 mg (*)] 81 mg PO DAILY #0 01/13/17 [Last Taken ] Pantoprazole Sodium [Protonix 40mg (*)] 40 mg PO BID #60 tab 01/13/17 [Last Taken Unknown] Discharge Medications: Refer to the Discharge Home Medication list for PRN reason. - Orders Services needed: Home Care, Registered Nurse, Physical Therapy Home Care Face to Face: I certify that this patient was under my care and that I had the required [id number] encounter meeting the encounter requirements on the discharge day. My findings support the fact that the patient is homebound as defined in Home Care Face to Face Continued: CMS Chapter 7 Medicare Benefits Manual 30.1.1 , The condition of the patient is such that there exists a normal inability to leave home and consequently, leaving home would require a considerable and taxing effort. Diet Recommendation: no restrictions on diet Diet Texture: Regular Texture Diet - Follow Up Care Current Providers and Referrals: Maryjo Mullins MD [Primary Care Provider] - As per Instructions
--- NOTE | 2017-01-13 16:21 | GDS ---
[f rep st] DISCHARGE SUMMARY DIAGNOSES: 1. Upper gastrointestinal bleed, status post argon laser to small duodenal lesion. 2. Coronary artery disease, status post drug-eluting stent in October, on dual antiplatelet therap y. 3. Aortic stenosis, status post TAVR. 4. Chronic kidney disease. 5. Dyslipidemia. 6. Hypertension. CONSULTATIONS: Samuel Daniel M.D., Gastroenterology. PROCEDURES DONE: 1. Echocardiogram. Moderate severe mitral annular calcification with mild mitral valve regurgitatio n status post TAVR with mild perivalvular leak. 2. Upper endoscopy. Small duodenal ulcer, status post argon laser and biopsy for Helicobacter pylor i, H pylori screen was negative. HOSPITAL COURSE: The patient is an 81-year-old woman recently undergoing stent placement as well as TAVR in October. Currently on Plavix and aspirin. She presents with increasing fatigue and was fo und to be anemic on admission. She had an echocardiogram which showed a stable TAVR. Dr. Daniel was consulted, did an upper endoscopy which revealed a small erosion in the duodenum that looked fairly benign, but was acutely bleeding. He did coagulation for hemostasis using an argon laser, which was successful. Postprocedure 24 hours later her hemoglobin stabilized at 10. Repeat hemoglobin was at 11. She was feeling well and was ready to go home. Physical and Occupational Therapy did work with the patient w boyd she was in the hospital and recommended ongoing home care with Nursing as well as Physical Thera py. CONDITION ON DISCHARGE: Good. Blood pressure 120/50, heart rate 80, she is 91% on room air and afeb rile. Abdomen exam is fairly benign except for some very minimal tenderness in the epigastric area. DISCHARGE MEDICATIONS: She will resume her home medications. Additionally she will be on Protonix 4 0 mg twice daily. She is to hold her aspirin for 1 week and continue the Plavix. FOLLOWUP INSTRUCTIONS: 1. She should follow up with Dr. Mullins in 1-2 weeks. 2. Follow up with Dr. Daniel as needed for recurrent bleeding. Total time spent with patient on day of discharge and coordination of care is 35 minutes. /[id number]/MODL
--- NOTE | 2017-01-13 16:23 | ASMTCMCOM ---
CM Note CM Note Notes: Dr. Estrada wrote d/c order for patient who will go home with [facility]. This home care notified prior C/M that patient is current with them and they will follow once she is home. This C/M called [facility] three times today at [phone] but has not recieved a call back. Chose nickel plant operator contact each time but never put through to nickel plant operator. C/M finally left message on their voice mail. Notified patients RN that this C/M will leave message for Sundays C/M to contact [facility] tomorrow to make sure they are following up. C/M will follow. Date Signed: 01/13/2017 04:23 PM Electronically Signed By:DESHAWN Jansen
== END 2017-01-13 17:55 | disposition home health service (06) | DRG 378 ==
LOC: EDUNIT# → F2W 23:11
PROVIDERS: ADMIT Student in an Organized Health Care Education/Training Program; ATTEND Student in an Organized Health Care Education/Training Program
DX: K26.4 Chronic or unspecified duodenal ulcer with hemorrhage (principal); D62 Acute posthemorrhagic anemia; I12.9 Hypertensive chronic kidney disease with stage 1 through stage 4 chronic kidney disease, or unspecified chronic kidney disease; N18.9 Chronic kidney disease, unspecified; I25.10 Atherosclerotic heart disease of native coronary artery without angina pectoris; Z95.5 Presence of coronary angioplasty implant and graft; Z95.2 Presence of prosthetic heart valve; I69.331 Monoplegia of upper limb following cerebral infarction affecting right dominant side
CPT/HCPCS: 96365; 97116-GP; 97161-GP; G8978-GP-CL; G8979-GP-CI; J0696; J2405; J2704; J2916; P9016

== ENCOUNTER → 2018-01-14 | Outpatient (CLI) | payer OTHER, MEDICARE ==
[~2018-01-14] MED LIST: IOPAMIDOL (ISOVUE-300) 100 ML BTL ONE
== END ==
LOC: FIMAGING 11:09
PROVIDERS: ATTEND Internal Medicine
DX: K76.9 Liver disease, unspecified (principal); I71.4 Abdominal aortic aneurysm, without rupture; K57.30 Diverticulosis of large intestine without perforation or abscess without bleeding; K44.9 Diaphragmatic hernia without obstruction or gangrene; M48.54XA Collapsed vertebra, not elsewhere classified, thoracic region, initial encounter for fracture; C18.9 Malignant neoplasm of colon, unspecified
CPT/HCPCS: 74177; Q9967; 82565-PO

== ENCOUNTER → 2018-02-18 | Outpatient (CLI) | payer OTHER, MEDICARE | LOC: BHFA 14:00 | PROVIDERS: ATTEND Internal Medicine Cardiovascular Disease | DX: R09.89 Other specified symptoms and signs involving the circulatory and respiratory systems (principal); Z95.2 Presence of prosthetic heart valve ==

== ENCOUNTER → 2018-02-19 | Outpatient (CLI) | payer OTHER, MEDICARE ==
[~2018-02-19] MED LIST changes: +IOPAMIDOL (ISOVUE 370) 100 ML BTL IV ONE; -IOPAMIDOL (ISOVUE-300) 100 ML BTL ONE
== END ==
LOC: FIMAGING 15:18
PROVIDERS: ATTEND Internal Medicine Cardiovascular Disease
DX: I65.23 Occlusion and stenosis of bilateral carotid arteries (principal); I65.01 Occlusion and stenosis of right vertebral artery; K11.8 Other diseases of salivary glands
CPT/HCPCS: 70498; Q9967; 82565-PO

== ENCOUNTER 2018-03-19 10:54 | Inpatient (IN) | payer OTHER, MEDICARE ==
[2018-03-19] MEDS ORDERED: LR 1,000 ML IV ONE (11:09)
[2018-03-19] MEDS ORDERED: cefOXitin SODIUM 2 GM in NS 100 ML IV ONE (11:37)
--- NOTE | 2018-03-19 11:37 | PDHPUP ---
History & Physical Update H&P update statement: This history and physical update is based on an assessment of the patient which was completed after admission or registration (within 24 hours), but prior to the surgery/procedure. H&P update: H&P reviewed & patient examined, no change in patient's condition since H&P completed
[2018-03-19] MEDS ORDERED: BUPIVACAINE/EPI 0.5% 30 ML SDV ONE (11:42)
--- NOTE | 2018-03-19 13:26 | PDANEPAE ---
ANE History of Present Illness colon CA here for hemicolectomy ANE Past Medical History - Cardiovascular History Hx Hypertension: Yes Hx Arrhythmias: No Hx Chest Pain: No Hx Coronary Artery / Peripheral Vascular Disease: Yes Hx CHF / Valvular Disease: Yes Hx Palpitations: No Cardiovascular History Comment: TAVR 2017. severe L AND R external carotid stenosis - Pulmonary History Hx Asthma/Reactive Airway Disease: Yes Hx Recent Upper Respiratory Infection: No Hx Oxygen in Use at Home: No Hx Sleep Apnea: No Sleep Apnea Screening Result - Last Documented: Negative Pulmonary History Comment: asthma - Neurologic History Hx Cerebrovascular Accident: Yes Hx Seizures: No Hx Dementia: No Neurologic History Comment: 2017 stroke/post angioplasty - Endocrine History Hx Diabetes: No - Renal History Hx Renal Disorders: No - Liver History Hx Hepatic Disorders: No - Neurological & Psychiatric Hx Hx Neurological and Psychiatric Disorders: Yes Neurological / Psychiatric History Comment: vision issues. neuropathy to feet - Cancer History Hx Cancer: Yes Cancer History Comment: new dx neoplasm of colon - Congenital Disorder History Hx Congenital Disorders: No - GI History Hx Gastrointestinal Disorders: Yes Gastrointestinal History Comment: acid reflux,diverticulitis - Other Health History Other Health History: anemia hx of several blood transfusion - Chronic Pain History Chronic Pain: Yes (lower back pain) - Surgical History Prior Surgeries: 2017 AVR,stent angioplasty ANE Review of Systems Review of Systems: - Exercise capacity METS (RN): 2 METS ANE Patient History - Allergies Allergies/Adverse Reactions: No Known Allergies Allergy (Verified 03/18/18 11:58) - Home Medications Home Medications: Atorvastatin Calcium [Lipitor 40 mg (*)] 40 mg PO HS 01/10/17 [Last Taken ] Clopidogrel Bisulfate [Plavix (*)] 75 mg PO DAILY 01/10/17 [Last Taken 01/10/17] LORazepam [Ativan (*)] 1 mg PO HS PRN 01/10/17 [Last Taken Unknown] Olmesartan Medoxomil [Benicar 20 mg (*)] 20 mg PO DAILY 01/10/17 [Last Taken ] Multivitamins [Multivitamin (*)] 1 each PO DAILY 03/11/18 [Last Taken Unknown] - NPO status NPO Status: no food or drink >8 hours NPO Since - Liquids (Date): 03/18/18 NPO Since - Liquids (Time): 20:00 NPO Since - Solids (Date): 03/18/18 NPO Since - Solids (Time): 20:00 - Anes Hx Anes Hx: no prior problems - Smoking Hx Smoking Status: Former smoker - Alcohol Use Alcohol Use: None - Family Anes Hx Family Anes Hx: none Family Hx Anesthesia Complications: none ANE Labs/Vital Signs - Vital Signs Blood Pressure: 146/51 Heart Rate: 70 Respiratory Rate: 25 O2 Sat (%): 93 Height: 167.64 cm Weight: 65.771 kg ANE Physical Exam - Airway Neck exam: FROM Mallampati Score: Class 2 Mouth exam: normal dental/mouth exam Mouth image: 1 - chipped - Pulmonary Pulmonary: no respiratory distress, clear to auscultation - Cardiovascular Cardiovascular: regular rate and rhythym, no murmur, rub, or gallop - ASA Status ASA Status: III ANE Anesthesia Plan Anesthesia Plan: spinal Total IV Anesthesia: Yes
[2018-03-19] MEDS ORDERED: morphINE PF 5 MG/10 ML INJ ONE (13:41)
[2018-03-19] MEDS ORDERED: BUPIVACAINE/DEXTROSE 7.5MG/ML 2 ML SPINAL AMP SP ONE (13:41)
[2018-03-19] MEDS ORDERED: PROPOFOL/EMULSION 500 MG/50 ML BOTTLE IV ONE ×2 (13:41→14:52)
[2018-03-19] MEDS ORDERED: BUPIVACAINE 0.25% 30 ML SDV ONE (14:13)
--- NOTE | 2018-03-19 14:23 | POSTOPPROG ---
Post Op Note Date of Operation: 03/19/18 Surgeon: Kalia Corrigan Operating Room Manager: Migdalia Allen PA-C Anesthesiologist: Spinal/TAP Anesthesia: IV Sedation Pre-op Diagnosis: Right Colon Ca Post-op Diagnosis: Same Procedure: Right hemicolectomy Inf/Abcess present in the surg proc area at time of surgery?: No EBL: Minimal Complications: no immediate Specimen(s): right colon
[2018-03-19] MEDS ORDERED: NALOXONE HCL 0.4 MG/ML INJ IVP PRN ×2 (14:43→14:48)
[2018-03-19] MEDS ORDERED: ACETAMINOPHEN 500 MG TAB PO PRN (14:48)
[2018-03-19] MEDS ORDERED: ONDANSETRON 4 MG/2 ML VIAL IVP PRN ×2 (14:48→15:47)
[2018-03-19] MEDS ORDERED: oxyCODONE IR 5 MG TAB PO PRN (14:48)
[2018-03-19] MEDS ORDERED: HYDROmorphONE/DILAUDID 2 MG/ML INJ IVP PRN (14:48)
[2018-03-19] MEDS ORDERED: ALBUTEROL 3 ML DEYVIAL IH PRN (14:48)
[2018-03-19] MEDS ORDERED: HYDROCODONE/APAP 5/325 TAB PO PRN (14:48)
--- NOTE | 2018-03-19 15:45 | POSTANESTH ---
Post Anesthetic Evaluation Cardiovascular Status: Normal, Stable, Similar to Pre-Op Cond Respiratory Status: Normal, Stable, Similar to Pre-op Cond., Requires Airway Assist Level of Consciousness/Mental Status: Moderately Sleepy Pain Control: Adequate, Prn Tx Ordered Nausea/Vomiting Control: Adequate, Prn Tx Ordered Complications Possibly Related to Anesthesia: None Noted
[2018-03-19] MEDS ORDERED: TEMAZEPAM 15 MG CAP PO PRN (15:47)
[2018-03-19] MEDS ORDERED: HYDROmorphONE/DILAUDID 1 MG/ML INJ IVP PRN (15:47)
[2018-03-19] MEDS ORDERED: fentaNYL 100 MCG/2 ML INJ ONE (15:55)
[2018-03-19] MEDS: fentaNYL 100 MCG/2 ML INJ IVP PRN ×2 (15:56→16:11)
--- NOTE | 2018-03-19 16:02 | PDMN ---
Medical Necessity Medical necessity: [facility] S232 Bowel Surgery: Colectomy, Partial, with or without Ostomy, 82 yo s/p CPT 49594, R open hemicolectomy, MC IP only
[2018-03-19] MEDS: D5W 1/2 NS W/ 20 KCl/L 1,000 ML IV SCH (17:10)
[2018-03-19] MEDS: HYDROCODONE/APAP 5/325 TAB PO PRN (17:23)
--- NOTE | 2018-03-19 17:57 | SOAPPROG ---
SOAP Progress Note Assessment/Plan: Assessment/Plan: Doing well. No postoperative concerns. Pain currently well managed. Discussed expected waning of spinal and local anesthetics. Order placed for albuterol inhaler. Recommend her bring her ventalin for pharmacy and dose verification. 03/19/18 17:55 Subjective: No immediate post op concerns. No abdominal pain. Requesting home inhalers- states she uses albuterol and ventalin at home. No shortness of breath or chest pain. Objective: Vital Signs Temp Pulse Resp BP Pulse Ox 35.5 C L 52 L 20 132/42 H 96 03/19/18 17:15 03/19/18 17:15 03/19/18 17:15 03/19/18 17:15 03/19/18 17:15 03/18/18 03/19/18 03/20/18 05:59 05:59 05:59 Intake Total 1650 Output Total 350 Balance 1300 Physical exam: Gen: A&O x3, appears comfortable, afebrile Abdomen: soft, distended, appropriate tenderness. Incision clean. ICD10 Worksheet Patient Problems: Problems Problem Status Onset Anemia Acute Dehydration Acute Failure to thrive Acute Gastrointestinal bleeding Acute Renal insufficiency Acute UTI (urinary tract infection) Acute
[2018-03-19] MEDS: ATORVASTATIN CALCIUM 40 MG TAB PO SCH (21:01)
[2018-03-19] MEDS: PANTOPRAZOLE SODIUM 40 MG TAB PO SCH (21:01)
[2018-03-19] MEDS: ONDANSETRON 4 MG/2 ML VIAL IVP PRN (21:08)
[2018-03-19] MEDS: LORazepam 1 MG TAB PO PRN (22:17)
[2018-03-19] MEDS: ALBUTEROL 60 PUFFS/8 GM MDI IH PRN (22:19)
--- NOTE | 2018-03-20 03:23 | GOP ---
[f rep st] OPERATIVE REPORT DATE OF OPERATION: 03/19/2018 SURGEON: Kalia Corrigan MD BAG BAILER: Migdalia Allen PA-C. ANESTHESIA: Spinal with sedation. ANESTHESIOLOGIST: Dr. Ramirez. PREOPERATIVE DIAGNOSIS: Right colon adenocarcinoma. POSTOPERATIVE DIAGNOSIS: Right colon adenocarcinoma. PROCEDURE PERFORMED: Right hemicolectomy with transversus abdominis plane block. FINDINGS: See below. INDICATIONS FOR PROCEDURE: 82-year-old female with a large hepatic flexure colon carcinoma. She is undergoing surgical excision at this time. Risks and benefits were explained of bleeding, infection, tumor recurrence, need for additional adjuvant therapy, anastomotic leak, ureter injury, as well as untoward cardiovascular complications. All questions were answered. She desires to proceed. A surgical physician assistant is standard and necessary and customary for the safe performance of this procedure. DESCRIPTION OF PROCEDURE: After spinal anesthesia was placed, monitored anesthesia care was started. A right upper quadrant transverse incision was created. The rectus muscle was divided. The abdominal cavity was entered. No ascites was present. Palpation of the liver disclosed no areas of nodularity. The tumor was easily palpable just proximal to the hepatic flexure as noted by its apple core morphology and preoperative tattooing. The remaining omental surfaces appeared normal. The visceral surfaces appeared normal. The pelvis appeared normal. No suspicious periportal adenopathy was appreciated as possibly suggested on preoperative CT imaging. The portions of omentum that were adherent to the full-thickness tumor were excised and left adherent to the transverse colon. The remaining omentum was away from the transverse colon. The ascending colon was taken off the white line of Toldt down toward the cecum. The appendix was lifted out of the retroperitoneum. The ureter was identified and preserved. The middle colic vessels were identified. The right branch of the middle colic vessel was sacrificed as the distal endpoint. A BLUE 75 stapler was fired across the colon at this location. Using a LigaSure device , the mesentery was taken down toward its root preserving the main middle colic artery and vein. The ileocecal fat pad was taken off the terminal ileum and the ileum transected at this location. Using the LigaSure device, the mesenteric dissection was completed toward the root incorporating the ileocolic artery and vein as well as the right colic artery and vein. The mesenteric dissection was followed around the level of the duodenum. The specimen was removed from the field intact. The colon and small bowel were easily reapproximated adjacent to 1 another without any tensions whatsoever. A stapled [id number] anastomosis was created with a BLUE 75 stapler. The ends were cleanly transected with a TA 60 stapler. Excellent luminal patency as well as vascularity was noted. The mesenteric defect was closed with a running PDS suture. The visceral contents were reduced back into the abdominal cavity. Omentum was replaced over the viscera. The fascia was closed in layers with a running PDS suture. The wound was closed in layers with absorbable suture and covered with Dermabond. A TAP block had been placed with 0.25% Marcaine prior to abdominal wall closure. The patient was awoken in the operating room, taken to recovery uneventfully. Copy requested to: Dr. Mullins, Dr. Daniel, Dr. Rausch /[id number]/MODL MTDD
[2018-03-20] MEDS: ALBUTEROL 60 PUFFS/8 GM MDI IH PRN ×4 (06:09→21:40)
[2018-03-20] MEDS: D5W 1/2 NS W/ 20 KCl/L 1,000 ML IV SCH (06:10)
[2018-03-20] MEDS: HYDROCODONE/APAP 5/325 TAB PO PRN ×3 (08:46→23:59)
[2018-03-20] MEDS: ONDANSETRON 4 MG/2 ML VIAL IVP PRN (08:52)
[2018-03-20] MEDS: OLMESARTAN MEDOXOMIL 20 MG TAB PO SCH (08:55)
[2018-03-20] MEDS: ASPIRIN EC 81 MG TAB PO SCH (08:55)
[2018-03-20] MEDS: PANTOPRAZOLE SODIUM 40 MG TAB PO SCH ×2 (08:55→21:38)
[2018-03-20] MEDS: CLOPIDOGREL BISULFATE 75 MG TAB PO SCH (08:55)
[2018-03-20] MEDS: MULTIVITAMINS 1 EACH TAB PO SCH (08:55)
--- NOTE | 2018-03-20 10:40 | SOAPPROG ---
SOAP Progress Note Assessment/Plan: Assessment/Plan: Doing well. Mild left abdominal pain- likely d/t unilateral TAP block. Pain currently well managed with PO meds. May trial advancing to regular diet. BMP ordered for today- Cr at her baseline, no other electrolyte imbalance. Garay removed this morning. Buff cap and d/c fluids. PT and OT to evaluate and treat. Patient seen and evaluated with Dr. Corrigan. 03/19/18 17:55 03/20/18 10:40 03/20/18 13:18 Subjective: No overnight concerns. Patient complains of moderate left abdominal pain. No right sided pain. Tolerating clear fluids well. No N/V. No shortness of breath. Has not urinated yet since garay removal this am. Objective: Vital Signs Temp Pulse Resp BP Pulse Ox 36.6 C 69 18 128/61 H 93 03/20/18 08:23 03/20/18 08:23 03/20/18 08:23 03/20/18 08:23 03/20/18 08:23 03/19/18 03/20/18 03/21/18 05:59 05:59 05:59 Intake Total 1650 Output Total 850 Balance 800 Physical Exam: Gen: A&O x3, appears comfortable, afebrile HEENT: anicteric CV: regular rate Abdomen: soft, distended, appropriate incisional tenderness, mild left abdominal tenderness. incision clean without erythema. No rebound or guarding Extremities: unremarkable ICD10 Worksheet Patient Problems: Problems Problem Status Onset Anemia Acute Dehydration Acute Failure to thrive Acute Gastrointestinal bleeding Acute Renal insufficiency Acute UTI (urinary tract infection) Acute
--- NOTE | 2018-03-20 15:48 | PDPAINCON ---
Pain Management Consultation Patient referred by : Shekhar - Subjective Pain is: under control Side effects include: No drowsy, No itchiness, No nausea, No nausea/vomiting, No rash - Objective Technique: spinal opioid Sensory and motor exam: block has resolved, no apparent ill effects - Assessment/Plan Additional comments: POD 1 s/p right hemicolectomy with IT morphine for analgesia. Effects of spinal block have receded. Pain is now being managed with PO analgesics. Primarily patient reports left-sided abdominal pain with activity.
[2018-03-20] MEDS ORDERED: NS 1,000 ML IV SCH (16:30)
--- NOTE | 2018-03-20 16:45 | ASMTCMCOM ---
CM Note CM Note Notes: Pt is a 82 y/o female admitted for right colon adenocarcinoma. Therapies are recommending HC. CM met w/ pt for dispo planning. Pt would like CM to speak w/ her Jacek since he handles their affairs. Jacek is agreeable to HC services. Referral made to [facility]. CM to follow. Plan: [facility]; PT, OT Date Signed: 03/20/2018 04:45 PM Electronically Signed By:ABDULLAHI Brown
[2018-03-20] MEDS: CALCIUM CARBONATE 500 MG CHEWABLE TAB PO PRN (18:01)
[2018-03-20] MEDS: ATORVASTATIN CALCIUM 40 MG TAB PO SCH (21:38)
[2018-03-20] MEDS: LORazepam 1 MG TAB PO PRN (21:38)
[2018-03-21] MEDS: ALBUTEROL 60 PUFFS/8 GM MDI IH PRN ×3 (06:16→17:49)
--- NOTE | 2018-03-21 07:46 | SOAPPROG ---
SOAP Progress Note Assessment/Plan: Assessment:no overnight issues. pain decently controlled. voiding better. avss. comfortable. abd soft. incis clean. pod#2 s/p r michele. doing well. diet as able. stop IVF. shower. home 1-2 days. pt/ot Plan: 03/21/18 07:45 Objective: Vital Signs Temp Pulse Resp BP Pulse Ox 36.9 C 76 18 146/43 H 90 L 03/21/18 03:12 03/21/18 03:12 03/21/18 03:12 03/21/18 03:12 03/21/18 03:12 Laboratory Results 03/20/18 10:39 03/20/18 03/21/18 03/22/18 05:59 05:59 05:59 Intake Total 1650 1610 Output Total 850 800 Balance 800 810 ICD10 Worksheet Patient Problems: Problems Problem Status Onset Anemia Acute Dehydration Acute Failure to thrive Acute Gastrointestinal bleeding Acute Renal insufficiency Acute UTI (urinary tract infection) Acute
[2018-03-21] MEDS: OLMESARTAN MEDOXOMIL 20 MG TAB PO SCH (09:16)
[2018-03-21] MEDS: MULTIVITAMINS 1 EACH TAB PO SCH (09:17)
[2018-03-21] MEDS: ASPIRIN EC 81 MG TAB PO SCH (09:17)
[2018-03-21] MEDS: CLOPIDOGREL BISULFATE 75 MG TAB PO SCH (09:17)
[2018-03-21] MEDS: PANTOPRAZOLE SODIUM 40 MG TAB PO SCH ×2 (09:17→19:32)
[2018-03-21] MEDS: HEPARIN 5,000 UNIT/0.5 ML INJ SC SCH ×2 (09:17→19:32)
[2018-03-21] MEDS: HYDROCODONE/APAP 5/325 TAB PO PRN (11:40)
[2018-03-21] MEDS: ATORVASTATIN CALCIUM 40 MG TAB PO SCH (19:32)
[2018-03-21] MEDS: DOCUSATE SODIUM 100 MG CAP PO SCH (19:32)
[2018-03-22] MEDS: METOCLOPRAMIDE 10 MG/2 ML VIAL IVP PRN ×2 (06:47→14:05)
[2018-03-22] MEDS: PANTOPRAZOLE SODIUM 40 MG TAB PO SCH ×2 (08:46→20:52)
[2018-03-22] MEDS: CLOPIDOGREL BISULFATE 75 MG TAB PO SCH ×2 (08:46→13:12)
[2018-03-22] MEDS: MULTIVITAMINS 1 EACH TAB PO SCH ×2 (08:46→13:12)
[2018-03-22] MEDS: ASPIRIN EC 81 MG TAB PO SCH ×2 (08:47→13:12)
[2018-03-22] MEDS: OLMESARTAN MEDOXOMIL 20 MG TAB PO SCH ×2 (08:47→12:29)
[2018-03-22] MEDS: HEPARIN 5,000 UNIT/0.5 ML INJ SC SCH ×2 (08:47→20:53)
[2018-03-22] MEDS: DOCUSATE SODIUM 100 MG CAP PO SCH ×3 (08:47→20:53)
[2018-03-22] MEDS: ALBUTEROL 60 PUFFS/8 GM MDI IH PRN (09:51)
[2018-03-22] MEDS ORDERED: ONDANSETRON 4 MG/2 ML VIAL ONE (10:26)
[2018-03-22] MEDS ORDERED: DICYCLOMINE 10 MG CAP PO PRN (10:28)
[2018-03-22] MEDS: ONDANSETRON 4 MG/2 ML VIAL IVP PRN ×4 (10:30→20:52)
--- NOTE | 2018-03-22 10:31 | SOAPPROG ---
SOAP Progress Note Assessment/Plan: Assessment:rough night - nausea and vomiting. no flatus. feels puny. avss. dry oral mucosa. abd soft, min dist, mild incis tenderness only. no erythema. pod#3 s/p r michele. prob ileus. restart IVF. zofran/bentyl. supportive care. plan reviewed with nursing staff at bedside. Plan: 03/21/18 07:45 03/22/18 10:29 Objective: Vital Signs Temp Pulse Resp BP Pulse Ox 36.8 C 72 16 145/57 H 88 L 03/22/18 07:39 03/22/18 09:56 03/22/18 09:56 03/22/18 07:39 03/22/18 09:56 Laboratory Results 03/20/18 10:39 03/21/18 03/22/18 03/23/18 05:59 05:59 05:59 Intake Total 1610 Output Total 800 500 Balance 810 -500 ICD10 Worksheet Patient Problems: Problems Problem Status Onset Anemia Acute Dehydration Acute Failure to thrive Acute Gastrointestinal bleeding Acute Renal insufficiency Acute UTI (urinary tract infection) Acute
[2018-03-22] MEDS: D5W 1/2 NS W/ 20 KCl/L 1,000 ML IV SCH (11:19)
--- NOTE | 2018-03-22 17:06 | ASMTCMCOM ---
CM Note CM Note Notes: Spoke with pt to discuss possibly needing rehab, pt asks that I speak with her and dtr. Met with pt's dtr Bernadette, gave her SNF options, she will look on line and let CM know. DC Plan: SNF Date Signed: 03/22/2018 03:12 PM Electronically Signed By:Celena Avila RN
[2018-03-22] MEDS: LORazepam 1 MG TAB PO PRN (20:52)
[2018-03-22] MEDS: ATORVASTATIN CALCIUM 40 MG TAB PO SCH (20:53)
[2018-03-23] MEDS: ALBUTEROL 60 PUFFS/8 GM MDI IH PRN ×3 (02:49→21:22)
[2018-03-23] MEDS: CALCIUM CARBONATE 500 MG CHEWABLE TAB PO PRN ×2 (02:51→21:22)
[2018-03-23] MEDS ORDERED: BISACODYL 10 MG SUPP PR PRN (08:02)
[2018-03-23] MEDS ORDERED: OLMESARTAN MEDOXOMIL 20 MG TAB PO PRN (08:04)
--- NOTE | 2018-03-23 08:09 | SOAPPROG ---
SOAP Progress Note Assessment/Plan: Assessment:rough night - nausea and vomiting again - kub with large air in rectum, no significant SB dilation, small residual free air. this morning, no pain. no current nausea. does not recall flatus. feels less puny. afebrile. BP 15-190 overnight - currently 150. moist oral mucosa. abd soft, non dist, minimal incis tenderness today. no erythema. pod#4 s/p r michele. ileus. cont IVF. zofran/bentyl. dulcolax trial. additional benicar if BP remains elevated. supportive care. plan reviewed with nursing staff at bedside. spoke with daughter at length last evening. PT/OT - patient will not refuse today. Plan: 03/21/18 07:45 03/22/18 10:29 03/23/18 08:06 Objective: Vital Signs Temp Pulse Resp BP Pulse Ox 36.9 C 78 14 154/64 H 97 03/23/18 08:00 03/23/18 08:00 03/23/18 08:00 03/23/18 08:00 03/23/18 08:00 Laboratory Results 03/22/18 11:52 03/22/18 11:52 03/22/18 03/23/18 03/24/18 05:59 05:59 05:59 Intake Total 930 Output Total 500 825 Balance -500 105 ICD10 Worksheet Patient Problems: Problems Problem Status Onset Anemia Acute Dehydration Acute Failure to thrive Acute Gastrointestinal bleeding Acute Renal insufficiency Acute UTI (urinary tract infection) Acute
[2018-03-23] MEDS: OLMESARTAN MEDOXOMIL 20 MG TAB PO SCH (10:36)
[2018-03-23] MEDS: HEPARIN 5,000 UNIT/0.5 ML INJ SC SCH ×2 (10:36→20:52)
[2018-03-23] MEDS: ASPIRIN EC 81 MG TAB PO SCH (11:07)
[2018-03-23] MEDS: CLOPIDOGREL BISULFATE 75 MG TAB PO SCH (11:12)
[2018-03-23] MEDS: MULTIVITAMINS 1 EACH TAB PO SCH (11:12)
[2018-03-23] MEDS: DOCUSATE SODIUM 100 MG CAP PO SCH ×2 (11:12→21:50)
[2018-03-23] MEDS: PANTOPRAZOLE SODIUM 40 MG TAB PO SCH ×2 (11:12→21:52)
--- NOTE | 2018-03-23 16:27 | ASMTCMCOM ---
CM Note CM Note Notes: Spoke with pt's while pt asleep. Pt still feeling poorly. D/C date TBD. PT recommending SNF. Family has chosen [facility]. Referrals sent. CM to follow. D/C Plan: [facility] pending acceptance. Date Signed: 03/23/2018 04:27 PM Electronically Signed By:Karen Low
[2018-03-23] MEDS ORDERED: IBUPROFEN 200 MG TAB PO PRN (17:43)
--- NOTE | 2018-03-23 21:23 | SOAPPROG ---
SOAP Progress Note Assessment/Plan: Assessment:better day. no further emesis. huge BM. patient showered. completely exhausted after today's events. small tinge of hunger pain returning. patient seen multiple times throughout day - she denied abdominal complaints and only admits to back pain when lying flat. she denies pain meds when offered. care plan reviewed with her daughter at length - her multiple concerns regarding her mother's recovery were directly reviewed with her and nursing staff at bedside. daughter was initially insistent on staff giving meds as she is listed as the POA - we discussed that POA requests are generally reserved when patients are unable to respond for themselves which Mrs. Ng appears to be doing (the patient appropriately interacted with all of us at this time). patient appears to be recovering as well as expected for an elderly octagenarian with extensive co-morbidities. ileus is clinically improving. no concerns for active pneumonia at this time or clinical concern for anastomotic leak. daughter expressed satisfaction with our discussion. they are actively looking into SNF facilities. Plan: 03/21/18 07:45 03/22/18 10:29 03/23/18 08:06 03/23/18 21:15 Objective: Vital Signs Temp Pulse Resp BP Pulse Ox 37.3 C 81 14 148/57 H 98 03/23/18 20:00 03/23/18 20:00 03/23/18 20:00 03/23/18 20:00 03/23/18 20:00 Laboratory Results 03/22/18 11:52 03/22/18 11:52 03/22/18 03/23/18 03/24/18 05:59 05:59 05:59 Intake Total 930 Output Total 500 825 Balance -500 105 ICD10 Worksheet Patient Problems: Problems Problem Status Onset Anemia Acute Dehydration Acute Failure to thrive Acute Gastrointestinal bleeding Acute Renal insufficiency Acute UTI (urinary tract infection) Acute
[2018-03-23] MEDS: ATORVASTATIN CALCIUM 40 MG TAB PO SCH (21:50)
[2018-03-24] MEDS: D5W 1/2 NS W/ 20 KCl/L 1,000 ML IV SCH (02:56)
[2018-03-24] MEDS: ONDANSETRON 4 MG/2 ML VIAL IVP PRN (02:56)
--- NOTE | 2018-03-24 07:52 | SOAPPROG ---
SOAP Progress Note Assessment/Plan: Assessment:good night. slept well. no pain today am. no nausea. a bit hungry today. afebrile bp 140/80. comfortable, skin color pink. alert, appropriate. abd soft, dist, nontender. incis clean. wbc 6. cr 1.1. pod#5 s /p right hemicolectomy - path T4N0M0. very slow progress. appears to be recovering appropriately from a surgical standpoint. ileus resolving. extremely deconditioned. discussed the importance of working with PT and being out of bed. increase po as able today. path reviewed with daughter last kavita and patient today. will require inpt rehab upon discharge. care plan reviewed with nursing staff at bedside on rounds. Plan: 03/21/18 07:45 03/22/18 10:29 03/23/18 08:06 03/23/18 21:15 03/24/18 07:47 Objective: Vital Signs Temp Pulse Resp BP Pulse Ox 37.1 C 80 22 H 143/80 H 98 03/24/18 04:00 03/24/18 04:00 03/24/18 04:00 03/24/18 04:00 03/24/18 04:00 Laboratory Results 03/24/18 05:35 03/24/18 05:35 03/23/18 03/24/18 03/25/18 05:59 05:59 05:59 Intake Total 930 960 Output Total 825 450 Balance 105 510 ICD10 Worksheet Patient Problems: Problems Problem Status Onset Anemia Acute Dehydration Acute Failure to thrive Acute Gastrointestinal bleeding Acute Renal insufficiency Acute UTI (urinary tract infection) Acute
[2018-03-24] MEDS: ASPIRIN EC 81 MG TAB PO SCH (09:08)
[2018-03-24] MEDS: MULTIVITAMINS 1 EACH TAB PO SCH (09:08)
[2018-03-24] MEDS: CLOPIDOGREL BISULFATE 75 MG TAB PO SCH (09:08)
[2018-03-24] MEDS: DOCUSATE SODIUM 100 MG CAP PO SCH ×2 (09:09→20:45)
[2018-03-24] MEDS: METOCLOPRAMIDE 10 MG/2 ML VIAL IVP PRN (11:05)
[2018-03-24] MEDS: PANTOPRAZOLE SODIUM 40 MG TAB PO SCH ×2 (11:07→21:08)
[2018-03-24] MEDS: OLMESARTAN MEDOXOMIL 20 MG TAB PO SCH (11:07)
[2018-03-24] MEDS: HEPARIN 5,000 UNIT/0.5 ML INJ SC SCH ×2 (14:12→21:08)
[2018-03-24] MEDS: ATORVASTATIN CALCIUM 40 MG TAB PO SCH (21:08)
[2018-03-25] MEDS: HEPARIN 5,000 UNIT/0.5 ML INJ SC SCH ×3 (05:31→22:35)
--- NOTE | 2018-03-25 08:52 | SOAPPROG ---
SOAP Progress Note Assessment/Plan: Assessment: no new issues. avss. resting comfortably. avss. abd soft, min dist. incis clean. pod#6 /p right hemicolectomy - path T4N0M0. continued very slow progress. appears to be recovering appropriately from a surgical standpoint. ileus continues to improve. remains extremely deconditioned. continued to increase po as able today. will require inpt rehab upon discharge. care plan reviewed with nursing staff at bedside on rounds. Plan: 03/21/18 07:45 03/22/18 10:29 03/23/18 08:06 03/23/18 21:15 03/24/18 07:47 03/25/18 08:50 Objective: Vital Signs Temp Pulse Resp BP Pulse Ox 36.7 C 78 16 144/58 H 97 03/25/18 04:00 03/25/18 04:00 03/25/18 04:00 03/25/18 04:00 03/25/18 04:00 Laboratory Results 03/24/18 05:35 03/24/18 05:35 03/24/18 03/25/18 03/26/18 05:59 05:59 05:59 Intake Total 960 480 Output Total 450 600 Balance 510 -120 ICD10 Worksheet Patient Problems: Problems Problem Status Onset Anemia Acute Dehydration Acute Failure to thrive Acute Gastrointestinal bleeding Acute Renal insufficiency Acute UTI (urinary tract infection) Acute
[2018-03-25] MEDS: DOCUSATE SODIUM 100 MG CAP PO SCH ×2 (10:39→20:32)
[2018-03-25] MEDS: MULTIVITAMINS 1 EACH TAB PO SCH (10:40)
[2018-03-25] MEDS: OLMESARTAN MEDOXOMIL 20 MG TAB PO SCH (10:48)
--- NOTE | 2018-03-25 10:49 | ASMTCMCOM ---
CM Note CM Note Notes: Pt is accepted at [facility] in [place]. Gianna with [facility] is updated pt is not medically ready for d/c. CM to follow. D/c plan of care: [facility] Date Signed: 03/25/2018 10:48 AM Electronically Signed By:DESHAWN Ford
[2018-03-25] MEDS: PANTOPRAZOLE SODIUM 40 MG TAB PO SCH ×2 (10:50→20:26)
[2018-03-25] MEDS: CLOPIDOGREL BISULFATE 75 MG TAB PO SCH (10:50)
[2018-03-25] MEDS: ASPIRIN EC 81 MG TAB PO SCH (10:50)
[2018-03-25] MEDS: ALBUTEROL 60 PUFFS/8 GM MDI IH PRN (14:10)
[2018-03-25] MEDS: ATORVASTATIN CALCIUM 40 MG TAB PO SCH (20:32)
[2018-03-26] MEDS: HEPARIN 5,000 UNIT/0.5 ML INJ SC SCH ×3 (06:13→22:25)
[2018-03-26] MEDS: DOCUSATE SODIUM 100 MG CAP PO SCH ×2 (10:16→20:05)
[2018-03-26] MEDS: MULTIVITAMINS 1 EACH TAB PO SCH (10:16)
[2018-03-26] MEDS: ASPIRIN EC 81 MG TAB PO SCH (10:17)
[2018-03-26] MEDS: CLOPIDOGREL BISULFATE 75 MG TAB PO SCH (10:17)
[2018-03-26] MEDS: OLMESARTAN MEDOXOMIL 20 MG TAB PO SCH (10:17)
[2018-03-26] MEDS: PANTOPRAZOLE SODIUM 40 MG TAB PO SCH ×2 (10:18→20:06)
--- NOTE | 2018-03-26 11:43 | SOAPPROG ---
SOAP Progress Note Assessment/Plan: Assessment: slept well. no complaints. hungry today. avss. resting comfortably. abd soft, min dist. incis clean. pod#7 /p right hemicolectomy - path T4N0M0. good progress yesterday. possible SNF transfer tomorrow if bed available. Plan: 03/21/18 07:45 03/22/18 10:29 03/23/18 08:06 03/23/18 21:15 03/24/18 07:47 03/25/18 08:50 03/26/18 11:42 Objective: Vital Signs Temp Pulse Resp BP Pulse Ox 36.3 C 68 18 165/45 H 100 03/26/18 11:31 03/26/18 11:31 03/26/18 11:31 03/26/18 11:31 03/26/18 11:31 Laboratory Results 03/24/18 05:35 03/24/18 05:35 03/25/18 03/26/18 03/27/18 05:59 05:59 05:59 Intake Total 480 Output Total 600 300 Balance -120 -300 ICD10 Worksheet Patient Problems: Problems Problem Status Onset Anemia Acute Dehydration Acute Failure to thrive Acute Gastrointestinal bleeding Acute Renal insufficiency Acute UTI (urinary tract infection) Acute
[2018-03-26] MEDS ORDERED: LORazepam 1 MG TAB PO PRN (18:39)
[2018-03-26] MEDS: ATORVASTATIN CALCIUM 40 MG TAB PO SCH (20:05)
[2018-03-27] MEDS: HEPARIN 5,000 UNIT/0.5 ML INJ SC SCH ×2 (06:22→14:55)
[2018-03-27 08:42] VITALS: BP 145/73
[2018-03-27] MEDS: OLMESARTAN MEDOXOMIL 20 MG TAB PO SCH (08:56)
[2018-03-27] MEDS: DOCUSATE SODIUM 100 MG CAP PO SCH (08:57)
[2018-03-27] MEDS: PANTOPRAZOLE SODIUM 40 MG TAB PO SCH (08:57)
[2018-03-27] MEDS: CLOPIDOGREL BISULFATE 75 MG TAB PO SCH (08:57)
[2018-03-27] MEDS: MULTIVITAMINS 1 EACH TAB PO SCH (08:57)
[2018-03-27] MEDS: ASPIRIN EC 81 MG TAB PO SCH (08:57)
--- NOTE | 2018-03-27 10:04 | PDIAF ---
- Diagnosis Diagnosis: Colon cancer Code Status: Full Code - Medication Management Discharge Medications: electronically signed and located in the Home Medication List. - Orders Services needed: Registered Nurse, Certified Salesperson [employer], Physical Therapy, Occupational Therapy Diet Recommendation: no restrictions on diet Diet Texture: Regular Texture Diet Manuel: Not applicable Wound Care Instructions: May shower. No dressing needed. Additional Instructions: May shower. Regular diet. Activity as tolerated, no lifting >25lbs. Follow up in office in 2-3 weeks- call to make appointment. Call with fevers, chills, wound concerns, inability to tolerate food or liquids, any other questions or concerns. - Follow Up Care Current Providers and Referrals: Maryjo Mullins MD [Primary Care Provider] - Kalia Corrigan MD [Medical Doctor] - follow up in 2 weeks (Call to make appointment) Liban Rausch MD [Medical Doctor] -
--- NOTE | 2018-03-27 10:24 | GDS ---
[f rep st] DISCHARGE SUMMARY 82-year-old female with a significant history of right colon cancer. She underwent an open right hemicolectomy on March 20, [address] Corrigan. Her postoperative course was notable for postoperative ileus, which resolved with conservative measures. She was tolerating a regular diet and fluids well prior to her discharge. Her pain was well managed on oral analgesics. She is transferring and ambulating well. Her pathology was found to be T4 N0 M0, this was reviewed with the patient and her family. She was advised to follow up with Oncology in the following weeks regarding further treatment. She will be discharged to a snf facility ([facility]) today. She is to resume all her home medications. She is to continue her subcutaneous heparin dose for prophylactic measures. Wound care instructions explained to patient. She is to follow up in the office in 2-3 weeks. She may call with further questions or concerns. All questions addressed. HOME MEDICATIONS: Include: Multivitamin, Protonix, Benicar, Ativan, Plavix, Lipitor, aspirin, and albuterol. /[id number]/MODL MTDD
--- NOTE | 2018-03-27 10:42 | ASMTLACE ---
MARTINE Length of stay for Answers: 7-13 days current admission Acuity / Level of Answers: Yes Care: Did the patient have an inpatient admission? Comorbidities - select Answers: Cerebrovascular disease all that apply (CVA, TIA, aneurysms, vasc ular dementia) Congestive heart failure Coronary Artery Disease Opioid dependence / Chronic pain Other Notes: HTN # of Emergency department Answers: 0 visits in the last 6 months Score: 18 Date Signed: 03/27/2018 10:42 AM Electronically Signed By:Celena Avila RN
--- NOTE | 2018-03-27 11:54 | ASMTDCNOTE ---
Case Management Discharge Discharge Order Complete? Answers: Yes Patient to Obtain Answers: Other Notes: At [facility] Medications Transportation Arranged Answers: Other Transport will Pick (Date 03/27/2018 03:00 PM & Time) Faxed Final Orders Answers: Yes Agency/Facility Transfer Answers: Yes Report Printed & Faxed to Receiving Agency Family Notified Answers: Yes Notes: Meagan Notified Discharge Comments Notes: D/w , final orders faxed. Gianna at [facility] notified. RN to call report. Date Signed: 03/27/2018 11:54 AM Electronically Signed By:Mila Sy
--- NOTE | 2018-03-28 10:57 | ASDISCHSUM ---
Discharge Information Plan Status:SNF Medically Cleared to Leave:03/27/2018 Discharge Date:03/27/2018 03:58 PM CM D/C Disposition: ADT D/C Disposition:[facility] Facility Projected Discharge Date:03/28/2018 11:00 AM Transportation at D/C: Discharge Delay Reason: Follow-Up Date:03/28/2018 11:00 AM Discharge Slot: Final Diagnosis: Placement Information Referral Type:*Home Health Care Services Referral ID:[id number] Provider Name: Address 1: Phone Number: Address 2: Fax Number: City: Selection Factors: State: Referral Type:*Residential/SNF Referral ID:[id number] Provider Name:[facility] [place] Address 1:[address] Phone Number: Address 2: Fax Number: [facility]:[place] Selection Factors: State:[place] Patient Contact Information Contact Name:MIRELA Relationship: Address:[address] [place] [address] City:[place] Alternate Phone: State/Zip Code:[place] [address] Email: Financial Information Financial Class:Medicare Primary Plan Desc:MEDICARE INPATIENT Primary Plan Number:[id number] Secondary Plan Desc:KAROLYN/MDR SUPPLEMENT Secondary Plan Number:[id number] Assessment Information LACE LACE Length of stay for Answers: 7-13 days current admission Acuity / Level of Answers: Yes Care: Did the patient have an inpatient admission? Comorbidities - select Answers: Cerebrovascular disease all that apply (CVA, TIA, aneurysms, vasc ular dementia) Congestive heart failure Coronary Artery Disease Opioid dependence / Chronic pain Other Notes: HTN # of Emergency department Answers: 0 visits in the last 6 months Score: 18 Date Signed: 03/27/2018 10:42 AM Electronically Signed By:Celena Avila RN [facility] Progress Note CM Note CM Note Notes: Pt is a 82 y/o female admitted for right colon adenocarcinoma. Therapies are recommending HC. CM met w/ pt for dispo planning. Pt would like CM to speak w/ her Jacek since he handles their affairs. Jacek is agreeable to HC services. Referral made to [facility]. CM to follow. Plan: [facility]; PT, OT Date Signed: 03/20/2018 04:45 PM Electronically Signed By:ABDULLAHI Brown [facility] CM Progress Note CM Note CM Note Notes: Spoke with pt to discuss possibly needing rehab, pt asks that I speak with her and dtr. Met with pt's dtr Bernadette, gave her SNF options, she will look on line and let CM know. DC Plan: SNF Date Signed: 03/22/2018 03:12 PM Electronically Signed By:Celena Avila RN [facility] CM Progress Note CM Note CM Note Notes: Spoke with pt's while pt asleep. Pt still feeling poorly. D/C date TBD. PT recommending SNF. Family has chosen [facility] [place]. Referrals sent. CM to follow. D/C Plan: [facility] pending acceptance. Date Signed: 03/23/2018 04:27 PM Electronically Signed By:Karen Low [facility] CM Progress Note CM Note CM Note Notes: Pt is accepted at [facility] in [place]. Gianna with [facility] is updated pt is not medically ready for d/c. CM to follow. D/c plan of care: [facility] Date Signed: 03/25/2018 10:48 AM Electronically Signed By:DESHAWN Ford Case Management Discharge Plan Note Case Management Discharge Discharge Order Complete? Answers: Yes Patient to Obtain Answers: Other Notes: At [facility] Medications Transportation Arranged Answers: Other Transport will Pick (Date 03/27/2018 03:00 PM & Time) Faxed Final Orders Answers: Yes Agency/Facility Transfer Answers: Yes Report Printed & Faxed to Receiving Agency Family Notified Answers: Yes Notes: Meagan Notified Discharge Comments Notes: Miriam CHING, final orders faxed. Gianna at [facility] notified. RN to call report. Date Signed: 03/27/2018 11:54 AM Electronically Signed By:Mila Sy Intervention Information Intervention Type:*IM-Signed Date of Service:03/27/2018 12:05 PM Patient Type:Inpatient Staff Member:Marifer Mckinney Hours: Discipline: Severity: Comment:
== END 2018-03-27 15:58 | DRG 330 ==
LOC: F3E 10:54
PROVIDERS: ADMIT Surgery; ATTEND Surgery
PROC: 0DTF0ZZ Resection of Right Large Intestine, Open Approach (ICD-10-PCS; principal; 2018-03-19 12:45)
DX: C18.2 Malignant neoplasm of ascending colon (principal); K91.89 Other postprocedural complications and disorders of digestive system; I35.0 Nonrheumatic aortic (valve) stenosis; R09.89 Other specified symptoms and signs involving the circulatory and respiratory systems; I25.10 Atherosclerotic heart disease of native coronary artery without angina pectoris; I10 Essential (primary) hypertension; K21.9 Gastro-esophageal reflux disease without esophagitis; J45.909 Unspecified asthma, uncomplicated; Z95.2 Presence of prosthetic heart valve; Z86.73 Personal history of transient ischemic attack (TIA), and cerebral infarction without residual deficits; Z87.891 Personal history of nicotine dependence
CPT/HCPCS: 97116-GP; 97162-GP; 97166-GO; 97530-GP; 97535-GO; J0694; J1170; J1644; J2274; J2405; J2704; J2765; J3010